=== PATIENT | female | born 1965 | race Caucasian/White ===

== ENCOUNTER 2020-08-26 17:06 | Inpatient (IN) | payer MEDICARE, SELFPAY ==
[2020-08-26 18:00] VITALS: BP 115/62; PULSE 63; RESP 18; TEMP 36.3; O2SAT 99
[2020-08-26 19:35] LABS: Valproate 50.7 mcg/mL (50.0-100.0)
[2020-08-26] MEDS: clonazePAM 0.5 MG TABLET 0.25 MG PO (20:42)
[2020-08-26] MEDS: OLANZapine 5 MG TABLET PO (20:44)
[2020-08-26] MEDS: Divalproex Sodium 500 MG TABLET.DR PO (20:44)
[2020-08-26] MEDS: Acetaminophen 325 MG TABLET 975 MG PO (20:44)
[2020-08-26] MEDS: busPIRone HCl 5 MG TABLET 15 MG PO (20:46)
[2020-08-26] MEDS: Topiramate 100 MG TABLET PO (20:46)
[2020-08-26] MEDS: risperiDONE 3 MG TABLET PO (20:46)
[2020-08-26] MEDS: OXcarbazepine 300 MG TABLET PO (20:46)
[2020-08-26] MEDS: Benztropine Mesylate 1 MG TABLET PO (20:46)
[2020-08-26] MEDS: Phenytoin Sodium Extended 100 MG CAPSULE 200 MG PO (20:46)
[2020-08-26] MEDS: nitrofurantoin macrocrystaL 50 MG CAPSULE PO (20:46)
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
[2020-08-27] MEDS: Benztropine Mesylate 1 MG TABLET PO ×2 (08:23→21:22)
[2020-08-27] MEDS: Topiramate 100 MG TABLET PO ×3 (08:23→21:16)
[2020-08-27] MEDS: Loratadine 10 MG TABLET PO (08:23)
[2020-08-27] MEDS: OLANZapine 5 MG TABLET PO ×2 (08:23→21:16)
[2020-08-27] MEDS: nitrofurantoin macrocrystaL 50 MG CAPSULE PO ×4 (08:23→21:16)
[2020-08-27] MEDS: Phenytoin Sodium Extended 100 MG CAPSULE 200 MG PO ×2 (08:23→21:16)
[2020-08-27] MEDS: busPIRone HCl 5 MG TABLET 15 MG PO ×2 (08:23→21:15)
[2020-08-27] MEDS: Divalproex Sodium 500 MG TABLET.DR PO ×3 (08:24→21:48)
[2020-08-27] MEDS: OXcarbazepine 150 MG TABLET PO (08:24)
[2020-08-27] MEDS: risperiDONE 3 MG TABLET PO ×2 (08:24→21:21)
[2020-08-27] MEDS: Acetaminophen 325 MG TABLET 975 MG PO ×2 (08:24→21:21)
[2020-08-27 08:35] LABS: MANUAL DIFF FLAG NO
[2020-08-27 08:41] LABS: Basophils Absolute Auto 0.1 X10*3/uL (0.0-0.2); Basophils Percent Auto 2.3 % (0-2); Eosinophils Absolute Auto 0.2 X10*3/uL (0.0-0.4); Eosinophils Percent Auto 3.8 % (0-4); Hematocrit 42.3 % (37-47); Hemoglobin 13.5 g/dl (12.0-16.0); Imm Gran Abs Auto 0.01 X10*3/uL (0.00-0.03); Imm Gran Pct Auto 0.2 % (0.0-0.4); Lymphocytes Absolute Auto 1.9 X10*3/uL (1.2-4.9); Lymphocytes Percent Auto 40.7 % (20-40); Mean Corpuscular HGB Conc 31.9 g/dl (31.0-35.0); Mean Corpuscular Hemoglobin 31.1 pg (27.0-33.0); Mean Corpuscular Volume 97.5 fL (80-98); Mean Platelet Volume 9.4 fL (9.4-12.3); Monocytes Absolute Auto 0.5 X10*3/uL (0.1-1.2); Monocytes Percent Auto 9.9 % (2-11); Neutrophils Percent Auto 43.1 % (45-73); Platelet Count 400 X10*3/uL (160-400); Red Blood Count 4.34 X10*6/uL (4.20-5.50); Red Cell Distribution Width 14.3 % (11.0-16.0); White Blood Count 4.7 X10*3/uL (4.8-10.8)
[2020-08-27 08:52] LABS: Estimated Average Glucose 97 mg/dL
[2020-08-27] MEDS: clonazePAM 0.5 MG TABLET 0.25 MG PO ×2 (09:07→21:19)
[2020-08-27 10:00] VITALS: BP 128/60; PULSE 98; RESP 18; TEMP 36.8; O2SAT 98
[2020-08-27 10:09] VITALS: BP 128/60; PULSE 70; RESP 18; TEMP 36.8; O2SAT 98
--- NOTE | 2020-08-27 10:25 | PM.IMHP ---
History of Present Illness Date of Service: 08/27/20 Chief Complaint: Medical consultation, transferred from outside hospital This 54-year-old female with past medical history of asthma, MS, PTSD, GERD, and history of bipolar disorder who is admitted to [facility] for mood decompensation and psychosis. We are asked to see her in consultation as she was transferred from outside facility. Patient is reporting nasal congestion, shortness of breath, wheezing, and reports that she has been having asthma exacerbation for the past 1 month on and off. She is asking about her inhaler, she is also complaining of numbness and tingling and weakness all over her body with no specific acute neurological deficit. She is complaining of chronic lower back pain and would like a lidocaine patch for it. Back pain is located in the lower back radiating to the abdomen to the front Patient denies any headache, change in vision, she has diarrhea occasionally, she has nausea and occasional vomiting. Reports urinary frequency with no dysuria urgency. Her labs from this a.m. show WBC count of 4.7, with no other abnormality. Past medical history as below and confirmed with patient Review of Systems Review of Systems: Yes all other systems are reviewed and are negative [facility] Medical History (Updated 08/27/20 @ 10:41 by Raza Slaughter MD) Asthma Bipolar disorder GERD (gastroesophageal reflux disease) Multiple sclerosis PTSD (post-traumatic stress disorder) Pertinent family history: Significant for asthma, ADD, MS Surgical History History of bilateral breast reduction surgery Social History Household Members: Other Household Members Other:: pt. resides in custodial Housing: House Do you presently have visiting nurse or other home services: Yes Smoking Status: Never smoker Second Hand Smoke Exposure: No Use of substances other than those prescribed or required for medical reasons: No Currently Displaying Signs/Symptoms of Drug Intoxication Withdrawal: No Have you been hit, kicked, punched, or otherwise hurt by someone within the past year? If so, by whom?: No Do you feel safe in your current relationship?: No Current Relationship Is there a partner from a previous relationship who is making you feel unsafe now?: No Are you made to feel afraid or neglected: No Spiritual Healthcare Practices: none [facility] Practices: none Cultural Healthcare Practices: none Advance Directives: No Advance Directives Information Provided: Yes Do you have thoughts of harming others: Vague Do you have a plan to hurt others: No Plan Recently lost weight without trying: No Meds Allergies Allergy/AdvReac Type Severity Reaction Status Date / Time No Known Allergies Allergy Verified 08/26/20 17:05 Active Medications: Current Medications Generic Name Dose Route Start Last Admin Trade Name Freq PRN Reason Stop Dose Admin Acetaminophen 975 mg 08/26/20 21:00 08/27/20 08:24 Acetaminophen 325 Mg Tablet PO 975 mg BID PAM Administration Al Hydroxide/Mg Hydroxide 30 ml 08/26/20 17:42 Magnesium Hydrox/Alum Hydrox 30 Ml Oral.Susp PO Q6H PRN Heartburn/Nausea Albuterol Sulfate 2 puff 08/27/20 10:15 Albuterol Sulfate 90 Mcg 8 Gm Inhaler INHALE Q4H PRN Shortness of Breath/Wheezing Benztropine Mesylate 1 mg 08/26/20 21:00 08/27/20 08:23 Benztropine Mesylate 1 Mg Tablet PO 1 mg BID PAM Administration Buspirone HCl 15 mg 08/26/20 21:00 08/27/20 08:23 Buspirone Hcl 5 Mg Tablet PO 15 mg BID PAM Administration Clonazepam 0.25 mg 08/26/20 21:00 08/27/20 09:07 Clonazepam 0.5 Mg Tablet PO 0.25 mg BID PAM Administration Divalproex Sodium 500 mg 08/26/20 21:00 08/27/20 08:24 Divalproex Sodium 500 Mg Tablet.Dr PO 500 mg TID PAM Administration Hydroxyzine HCl 25 mg 08/26/20 17:42 Hydroxyzine Hcl 25 Mg Tablet PO BEDTIME PRN Anxiety Ibuprofen 400 mg 08/26/20 18:00 Ibuprofen 400 Mg Tablet PO Q8H PRN pain Lidocaine 1 patch 08/28/20 09:00 Lidocaine 4 % Patch Adh..Patch TRANSDERMA DAILY [facility] Protocol Loratadine 10 mg 08/27/20 09:00 08/27/20 08:23 Loratadine 10 Mg Tablet PO 10 mg DAILY PAM Administration Lorazepam 1 mg 08/26/20 18:03 Lorazepam 1 Mg Tablet PO Q4H PRN anxiety, agitation Magnesium Hydroxide 30 ml 08/26/20 17:42 Milk Of Magnesia 30 Ml Oral.Susp PO DAILY PRN Constipation Nitrofurantoin Macrocrystals 50 mg 08/26/20 21:00 08/27/20 08:23 Nitrofurantoin Macrocrystal 50 Mg Capsule PO 50 mg QID PAM Administration Olanzapine 5 mg 08/26/20 21:00 08/27/20 08:23 Olanzapine 5 Mg Tablet PO 5 mg BID PAM Administration Olanzapine 5 mg 08/26/20 18:02 Olanzapine 5 Mg Tablet PO Q4H PRN psychotic agitation Oxcarbazepine 150 mg 08/27/20 09:00 08/27/20 08:24 Oxcarbazepine 150 Mg Tablet PO 150 mg DAILY [facility] Administration Oxcarbazepine 300 mg 08/26/20 21:00 08/26/20 20:46 Oxcarbazepine 300 Mg Tablet PO 300 mg BEDTIME PAM Administration Phenytoin Sodium 200 mg 08/26/20 21:00 08/27/20 08:23 Phenytoin Sodium Extended 100 Mg Capsule PO 200 mg BID PAM Administration Prednisone 40 mg 08/28/20 09:00 Prednisone 20 Mg Tablet PO DAILY PAM Risperidone 3 mg 08/26/20 21:00 08/27/20 08:24 Risperidone 3 Mg Tablet PO 3 mg BID PAM Administration Topiramate 100 mg 08/26/20 21:00 08/27/20 08:23 Topiramate 100 Mg Tablet PO 100 mg TID PAM Administration Trazodone HCl 50 mg 08/26/20 17:42 Trazodone Hcl 50 Mg Tablet PO BEDTIME PRN Insomnia Physical Exam Vital Signs and Narrative: Vital Signs: Last Vital Signs Temp 98.2 F 08/27/20 10:09 Pulse 70 08/27/20 10:09 Resp 18 08/27/20 10:09 BP 128/60 08/27/20 10:09 Pulse Ox 98 08/27/20 10:09 Const: General: cooperative and no acute distress Orientation/consciousness: patient oriented x3 HENMT: Other: Rhinorrhea Eyes: General: appearance normal, both eyes and all related structures Resp: Other: Mild respiratory wheezing Effort & Inspection: normal respiratory effort and able to speak in complete sentences Cardio: Rate: regular rate Rhythm: regular rhythm GI: Palpation (GI): Soft to palpation Auscultation: normal bowel sounds Skin: General skin exam: no rashes or lesions noted Neuro: General: patient oriented x3 Cognition (Neuro): normal cognition Extrem: General: Yes normal to inspection and Yes no pedal edema Results Labs CBC and Chem 7: 08/27/20 08:12 Labs: Laboratory Results - last 24 hr 08/26/20 08/27/20 08/27/20 18:55 08:12 08:12 MCV 97.5 MCH 31.1 MCHC 31.9 RDW 14.3 Plt Count 400 MPV 9.4 Immature Gran % (Auto) 0.2 Neut % (Auto) 43.1 L Lymph % (Auto) 40.7 H Throckmorton % (Auto) 9.9 Eos % (Auto) 3.8 Baso % (Auto) 2.3 H Lymph # (Auto) 1.9 Th[place]morton # (Auto) 0.5 Eos # (Auto) 0.2 Baso # (Auto) 0.1 Abs Immat Gran (auto) 0.01 Absolute Neuts (auto) 2.0 Absolute Nucleated RBC 0.000 Nucleated RBC % (auto) 0.0 Estimat Average Glucose 97 Hemoglobin A1c % 5.0 Valproic Acid 50.7 Assessment and Plan (1) Asthma: Status: Acute (2) Back pain: Status: Acute (3) Bipolar disorder: Status: Inactive This is a 54-year-old female with history of bipolar, PTSD, asthma, MS who presents to [facility] for decompensated mood and psychosis. We are s asked to see patient medical consultation # asthma - she has mild expiratory wheezing, not in respiratory distress, no dyspnea, no hypoxia - will start he on prednisone 40 p.o., p.r.n. albuterol inhaler at bedside, prn duoneb with wheezing and SOB - Pseudophed for nasal congestion # Back pain - Chronic - will prescribe lidocaine patch # Mood disorder - Management per psychiatrist Thank you for this consult will sign off , if you need us to reevaluate pt , please contact us
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
[2020-08-27 18:00] VITALS: BP 125/76; PULSE 80; RESP 16; TEMP 36; O2SAT 99
[2020-08-27] MEDS: OXcarbazepine 300 MG TABLET PO (21:21)
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
[2020-08-28] MEDS: Acetaminophen 325 MG TABLET 975 MG PO ×2 (08:35→20:13)
[2020-08-28] MEDS: busPIRone HCl 5 MG TABLET 15 MG PO ×2 (08:36→20:12)
[2020-08-28] MEDS: clonazePAM 0.5 MG TABLET 0.25 MG PO ×2 (08:36→20:12)
[2020-08-28] MEDS: OLANZapine 5 MG TABLET PO ×2 (08:37→20:14)
[2020-08-28] MEDS: predniSONE 20 MG TABLET 40 MG PO (08:37)
[2020-08-28] MEDS: nitrofurantoin macrocrystaL 50 MG CAPSULE PO ×4 (08:37→20:13)
[2020-08-28] MEDS: OXcarbazepine 150 MG TABLET PO (08:37)
[2020-08-28] MEDS: Phenytoin Sodium Extended 100 MG CAPSULE 200 MG PO ×2 (08:37→20:14)
[2020-08-28] MEDS: Topiramate 100 MG TABLET PO ×3 (08:37→20:14)
[2020-08-28] MEDS: Divalproex Sodium 500 MG TABLET.DR PO ×3 (08:37→20:12)
[2020-08-28] MEDS: Loratadine 10 MG TABLET PO (08:38)
[2020-08-28] MEDS: Benztropine Mesylate 1 MG TABLET PO ×2 (08:38→20:14)
[2020-08-28] MEDS: risperiDONE 3 MG TABLET PO ×2 (08:38→20:14)
[2020-08-28] MEDS: Lidocaine 4 % Patch ADH..PATCH 1 PATCH TRANSDERMA (08:38)
[2020-08-28 16:53] VITALS: BP 114/58; PULSE 72; RESP 18; TEMP 36; O2SAT 99
[2020-08-28] MEDS: OXcarbazepine 300 MG TABLET PO (20:13)
[2020-08-29 05:05] VITALS: BP 118/63; PULSE 70; RESP 16; TEMP 36.6; O2SAT 100
[2020-08-29 08:39] LABS: Folate 6.5 ng/mL (> or = 4.0); Vitamin B12 449 pg/mL (200-900)
--- NOTE | 2020-08-29 09:00 | ECG_ITS ---
Test Reason : QTC PROLONGATION Blood Pressure : / mmHG Vent. Rate : 078 BPM Atrial Rate : 078 BPM P-R Int : 168 ms QRS Dur : 082 ms QT Int : 398 ms P-R-T Axes : 057 035 -27 degrees QTc Int : 453 ms Normal sinus rhythm Low voltage QRS T wave abnormality, consider anterior ischemia Abnormal ECG No previous ECGs available Referred By: Dora Stapleton Electronically Signed By:Naren Contreras
[2020-08-29] MEDS: busPIRone HCl 5 MG TABLET 15 MG PO ×2 (09:02→20:39)
[2020-08-29] MEDS: Benztropine Mesylate 1 MG TABLET PO ×2 (09:02→20:41)
[2020-08-29] MEDS: Acetaminophen 325 MG TABLET 975 MG PO ×2 (09:03→20:41)
[2020-08-29] MEDS: predniSONE 20 MG TABLET 40 MG PO (09:04)
[2020-08-29] MEDS: OXcarbazepine 150 MG TABLET PO (09:05)
[2020-08-29] MEDS: Divalproex Sodium 500 MG TABLET.DR PO ×3 (09:05→20:41)
[2020-08-29] MEDS: clonazePAM 0.5 MG TABLET 0.25 MG PO ×2 (09:05→20:40)
[2020-08-29] MEDS: nitrofurantoin macrocrystaL 50 MG CAPSULE PO ×4 (09:06→20:40)
[2020-08-29] MEDS: Loratadine 10 MG TABLET PO (09:06)
[2020-08-29] MEDS: Phenytoin Sodium Extended 100 MG CAPSULE 200 MG PO ×2 (09:07→20:39)
[2020-08-29] MEDS: Topiramate 100 MG TABLET PO ×3 (09:07→20:41)
[2020-08-29] MEDS: risperiDONE 3 MG TABLET PO ×2 (09:07→20:41)
[2020-08-29] MEDS: OLANZapine 5 MG TABLET PO ×2 (09:08→20:39)
[2020-08-29] MEDS: Lidocaine 4 % Patch ADH..PATCH 1 PATCH TRANSDERMA (09:09)
[2020-08-29 11:55] LABS: Alanine Aminotransferase 13 U/L (0-31); Albumin Level 3.8 g/dL (3.5-5.0); Alkaline Phosphatase 87 U/L (39-117); Anion Gap 14 (12-20); Aspartate Amino Transferase 15 U/L (5-31); Bilirubin Total 0.3 mg/dL (0.0-1.0); Blood Urea Nitrogen 20 mg/dL (9-16); Calcium 8.6 mg/dL (8.4-10.2); Carbon Dioxide 23 mmol/L (22-29); Chloride 106 mmol/L (96-108); Estimated Glomerular Filt Rate > 60; Glucose Random 99 mg/dL (60-115); Potassium 4.3 mmol/L (3.3-5.1); Sodium 139 mmol/L (135-145); Total Protein 7.3 g/dL (6.5-8.0)
[2020-08-29 12:15] LABS: Thyroid Stimulating Hormone 0.95 uIU/mL (0.32-4.0); Vitamin D 25-OH Total 24.6 ng/mL (>30)
[2020-08-29] MEDS: Ibuprofen 400 MG TABLET PO (13:16)
[2020-08-29 16:23] VITALS: BP 123/58; PULSE 69; RESP 18; TEMP 36.2
--- NOTE | 2020-08-29 17:34 | HO.PSYCHPN ---
Subjective Subjective Date of Service: 08/29/20 Reason For Visit: unspecified schizophrenia Subjective Notes: Conditional Voluntary Interim History: Pt reports she is OK . Denies current psychiatric sx. Believes she is here for sciatica. No behaviors of concern observed. Medication Compliance: Yes Side effects from medications: No Attending Groups: No Review of Systems Musculoskeletal: Reports back pain and Reports other (reports sciatica sx) Mental Status Exam Mental Status Exam Patient Appearance: Appropriate Patient Orientation: Person and Place Level of Consciousness: Alert Patient Behavior: Cooperative, Anxious, Fearful, Distractible and Good Eye Contact Mood Description: Flat Affect Description: Flat Patient Cognition Impaired: Yes Ability to Follow Directions: Good Speech Pattern: Appropriate, Monotone, Spontaneous Speech, Soft-Spoken, Delayed, Poor Articulation and Long Pauses Memory Description: Intact Hallucinations: None Delusions: Not Present Thought Process: Illogical and Distracted Thought Content: positive for Intact and positive for Circumstantial Depressive Symptoms: Increased Irritability (reported) Judgement: Fair Diagnostics Vital Signs (24Hr): Vital Signs - 24 hr 08/29/20 05:05 08/29/20 16:23 Temperature 97.8 F 97.1 F Pulse Rate 70 69 Respiratory Rate 16 18 Blood Pressure 118/63 123/58 L Pulse Oximetry 100 Labs Results: 08/27/20 08:12 08/29/20 11:12 Labs: Laboratory Results - last 48 hr 08/27/20 08/29/20 08:12 11:12 Sodium 139 Potassium 4.3 Chloride 106 Carbon Dioxide 23 Anion Gap 14 BUN 20 H Creatinine 0.78 Estim Creat Clear Calc TNP Estimated GFR > 60 Random Glucose 99 Calcium 8.6 Total Bilirubin 0.3 AST 15 ALT 13 Alkaline Phosphatase 87 Total Protein 7.3 Albumin 3.8 Vitamin B12 449 25-OH Vitamin D Total 24.6 Folate 6.5 TSH 0.95 Medications Medications Current Medications Generic Name Dose Route Start Last Admin Trade Name Freq PRN Reason Stop Dose Admin Acetaminophen 975 mg 08/26/20 21:00 08/29/20 09:03 Acetaminophen 325 Mg Tablet PO 975 mg BID PAM Administration Al Hydroxide/Mg Hydroxide 30 ml 08/26/20 17:42 Magnesium Hydrox/Alum Hydrox 30 Ml Oral.Susp PO Q6H PRN Heartburn/Nausea Albuterol Sulfate 2 puff 08/27/20 10:15 Albuterol Sulfate 90 Mcg 8 Gm Inhaler INHALE Q4H PRN Shortness of Breath/Wheezing Albuterol/Ipratropium 3 ml 08/27/20 10:46 Albuterol/Iprat 2.5/0.5mg 3 Ml Ampul.Neb INHALE RQ4H PRN Shortness of Breath/Wheezing Benztropine Mesylate 1 mg 08/26/20 21:00 08/29/20 09:02 Benztropine Mesylate 1 Mg Tablet PO 1 mg BID PAM Administration Buspirone HCl 15 mg 08/26/20 21:00 08/29/20 09:02 Buspirone Hcl 5 Mg Tablet PO 15 mg BID PAM Administration Clonazepam 0.25 mg 08/26/20 21:00 08/29/20 09:05 Clonazepam 0.5 Mg Tablet PO 0.25 mg BID PAM Administration Divalproex Sodium 500 mg 08/26/20 21:00 08/29/20 15:01 Divalproex Sodium 500 Mg Tablet.Dr PO 500 mg TID PAM Administration Hydroxyzine HCl 25 mg 08/26/20 17:42 Hydroxyzine Hcl 25 Mg Tablet PO BEDTIME PRN Anxiety Ibuprofen 400 mg 08/26/20 18:00 08/29/20 13:16 Ibuprofen 400 Mg Tablet PO 400 mg Q8H PRN Administration pain Lidocaine 1 patch 08/28/20 09:00 08/29/20 09:09 Lidocaine 4 % Patch Adh..Patch TRANSDERMA 1 patch DAILY PAM Administration Protocol Loratadine 10 mg 08/27/20 09:00 08/29/20 09:06 Loratadine 10 Mg Tablet PO 10 mg DAILY PAM Administration Lorazepam 1 mg 08/26/20 18:03 Lorazepam 1 Mg Tablet PO Q4H PRN anxiety, agitation Magnesium Hydroxide 30 ml 08/26/20 17:42 Milk Of Magnesia 30 Ml Oral.Susp PO DAILY PRN Constipation Nitrofurantoin Macrocrystals 50 mg 08/26/20 21:00 08/29/20 16:45 Nitrofurantoin Macrocrystal 50 Mg Capsule PO 50 mg QID PAM Administration Olanzapine 5 mg 08/26/20 21:00 08/29/20 09:08 Olanzapine 5 Mg Tablet PO 5 mg BID PAM Administration Olanzapine 5 mg 08/26/20 18:02 Olanzapine 5 Mg Tablet PO Q4H PRN psychotic agitation Oxcarbazepine 150 mg 08/27/20 09:00 08/29/20 09:05 Oxcarbazepine 150 Mg Tablet PO 150 mg DAILY PAM Administration Oxcarbazepine 300 mg 08/26/20 21:00 08/28/20 20:13 Oxcarbazepine 300 Mg Tablet PO 300 mg BEDTIME PAM Administration Phenytoin Sodium 200 mg 08/26/20 21:00 08/29/20 09:07 Phenytoin Sodium Extended 100 Mg Capsule PO 200 mg BID PAM Administration Prednisone 40 mg 08/28/20 09:00 08/29/20 09:04 Prednisone 20 Mg Tablet PO 40 mg DAILY PAM Administration Pseudoephedrine HCl 30 mg 08/27/20 10:30 Pseudoephedrine Hcl 30 Mg Tablet PO Q4H PRN Nasal Congestion Risperidone 3 mg 08/26/20 21:00 08/29/20 09:07 Risperidone 3 Mg Tablet PO 3 mg BID PAM Administration Topiramate 100 mg 08/26/20 21:00 08/29/20 15:01 Topiramate 100 Mg Tablet PO 100 mg TID PAM Administration Trazodone HCl 50 mg 08/26/20 17:42 Trazodone Hcl 50 Mg Tablet PO BEDTIME PRN Insomnia Vitamin D 25 mcg 08/30/20 09:00 Cholecalciferol (Vitamin D3) 25 Mcg Tablet PO DAILY PAM Allergies Allergies Allergy/AdvReac Type Severity Reaction Status Date / Time No Known Allergies Allergy Verified 08/26/20 17:05 Assessment & Plan Assessment & Plan (1) Schizophrenia: Status: Acute Code(s): F20.9 - Schizophrenia, unspecified Assessment and Plan: Continue to observe for sx, behaviors (2) Intellectual disability: Status: Acute Code(s): F79 - Unspecified intellectual disabilities Greater than 50% of the session was spent on counseling and/or coordination of care Reason for contiued inpatient stay Substantial Risk for: harm to self, harm to others, inability to function and rapid decompensation
[2020-08-29] MEDS: OXcarbazepine 300 MG TABLET PO (20:40)
--- NOTE | 2020-08-30 | EEG_ITS ---
This is a 16-channel EEG with an EKG lead. The patient is reported awake and drowsy during the tracing. Background EEG rhythm is about 10 hertz, 5 to 30 microvolt posteriorly, lower amplitude fast anteriorly. Intermittently some mild slowing is noted that is slightly more pronounced in right frontal area. No definite sharp waves or spikes were noted. Photic stimulation does not produce any significant abnormality. Hyperventilation is not performed. Cardiac lead does not reveal any significant abnormality. IMPRESSION: No significant abnormality noted on this EEG. MD LC Tenorio/SENG / [id number]
[2020-08-30 06:10] VITALS: BP 135/64; PULSE 71; RESP 16; TEMP 36.4; O2SAT 100
[2020-08-30] MEDS: Phenytoin Sodium Extended 100 MG CAPSULE 200 MG PO ×2 (07:43→20:38)
[2020-08-30] MEDS: clonazePAM 0.5 MG TABLET 0.25 MG PO ×2 (07:43→20:37)
[2020-08-30] MEDS: busPIRone HCl 5 MG TABLET 15 MG PO ×2 (07:44→20:36)
[2020-08-30] MEDS: Divalproex Sodium 500 MG TABLET.DR PO ×3 (07:45→20:38)
[2020-08-30] MEDS: Topiramate 100 MG TABLET PO ×3 (07:45→20:36)
[2020-08-30] MEDS: predniSONE 20 MG TABLET 40 MG PO (07:45)
[2020-08-30] MEDS: OLANZapine 5 MG TABLET PO ×2 (07:46→20:37)
[2020-08-30] MEDS: Acetaminophen 325 MG TABLET 975 MG PO ×2 (07:46→17:25)
[2020-08-30] MEDS: Cholecalciferol (Vitamin D3) 25 MCG TABLET PO (07:46)
[2020-08-30] MEDS: risperiDONE 3 MG TABLET PO ×2 (07:46→20:37)
[2020-08-30] MEDS: Benztropine Mesylate 1 MG TABLET PO ×2 (07:47→20:38)
[2020-08-30] MEDS: Loratadine 10 MG TABLET PO (07:47)
[2020-08-30] MEDS: Lidocaine 4 % Patch ADH..PATCH 1 PATCH TRANSDERMA (07:48)
[2020-08-30] MEDS: OXcarbazepine 150 MG TABLET PO (07:48)
[2020-08-30] MEDS: nitrofurantoin macrocrystaL 50 MG CAPSULE PO ×4 (07:54→20:36)
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
--- NOTE | 2020-08-30 16:29 | PM.NEUROCN ---
History of Present Illness Data of Consult Service Date: 08/30/20 Primary Care Provider: Shahzad Soliz DO, MD HPI Reason for consult: History of seizures since age 2 This is a 54-year-old woman who was transferred here from [facility] to the psych unit. She has a history of for mild intellectual disability since schizophrenia asthma back pain and epilepsy since age 2. She has been on Depakote and came in with a therapeutic level of just above 50. She says that she has not had a seizure in over a year. No eyewitness account of the seizures is available. She's not very reliable historian. Review of Systems Eyes: Eyes: Reports no additional eye complaints ENT: Reports system reviewed and no additional complaints, except as documented and Reports Normal hearing present Cardiovascular: Cardiovascular: Reports no additional cardiovascular complaints Respiratory: Respiratory: Reports no additional respiratory complaints Gastrointestinal: Gastrointestinal: Reports no additional gastrointestinal complaints Musculoskeletal: Musculoskeletal: Reports no additional musculoskeletal complaints Integumentary/Breasts: Skin/Breast: Reports system reviewed and no additional complaints, except as docu Neurologic: Reports as per HPI and Reports Normal hearing present Psychiatric: Psychiatric: Reports as per HPI Endocrine: Endocrine: Reports no additional endocrine complaints Hematologic/Lymphatic: Hematologic/Lymphatic: Reports no additional hematologic/lymphatic complaints Allergic/Immunologic: Allergic/Immunologic: Reports no additional allergic/immunologic complaints [facility] Past Medical History Medical History (Updated 08/30/20 @ 16:32 by Brigitte Nunez MD) Asthma Bipolar disorder GERD (gastroesophageal reflux disease) Intellectual disability Multiple sclerosis PTSD (post-traumatic stress disorder) Schizophrenia Seizure disorder Surgical History Surgical History History of bilateral breast reduction surgery Social History Social History Household Members: Other Household Members Other:: pt. resides in correction Housing: House Do you presently have visiting nurse or other home services: Yes Smoking Status: Never smoker Second Hand Smoke Exposure: No Use of substances other than those prescribed or required for medical reasons: No Currently Displaying Signs/Symptoms of Drug Intoxication Withdrawal: No Have you been hit, kicked, punched, or otherwise hurt by someone within the past year? If so, by whom?: No Do you feel safe in your current relationship?: No Current Relationship Is there a partner from a previous relationship who is making you feel unsafe now?: No Are you made to feel afraid or neglected: No Spiritual Healthcare Practices: none Latter-Day Healthcare Practices: none Cultural Healthcare Practices: none Advance Directives: No Advance Directives Information Provided: Yes Do you have thoughts of harming others: None Do you have a plan to hurt others: No Plan Recently lost weight without trying: No service: No Sexual orientation: Don't Know Meds Allergies Allergy/AdvReac Type Severity Reaction Status Date / Time No Known Allergies Allergy Verified 08/26/20 17:05 Active Medications: Current Medications Generic Name Dose Route Start Last Admin Trade Name Freq PRN Reason Stop Dose Admin Acetaminophen 975 mg 08/26/20 21:00 08/30/20 07:46 Acetaminophen 325 Mg Tablet PO 975 mg BID PAM Administration Al Hydroxide/Mg Hydroxide 30 ml 08/26/20 17:42 Magnesium Hydrox/Alum Hydrox 30 Ml Oral.Susp PO Q6H PRN Heartburn/Nausea Albuterol Sulfate 2 puff 08/27/20 10:15 Albuterol Sulfate 90 Mcg 8 Gm Inhaler INHALE Q4H PRN Shortness of Breath/Wheezing Albuterol/Ipratropium 3 ml 08/27/20 10:46 Albuterol/Iprat 2.5/0.5mg 3 Ml Ampul.Neb INHALE RQ4H PRN Shortness of Breath/Wheezing Benztropine Mesylate 1 mg 08/26/20 21:00 08/30/20 07:47 Benztropine Mesylate 1 Mg Tablet PO 1 mg BID PAM Administration Buspirone HCl 15 mg 08/26/20 21:00 08/30/20 07:44 Buspirone Hcl 5 Mg Tablet PO 15 mg BID PAM Administration Clonazepam 0.25 mg 08/26/20 21:00 08/30/20 07:43 Clonazepam 0.5 Mg Tablet PO 0.25 mg BID PAM Administration Divalproex Sodium 500 mg 08/26/20 21:00 08/30/20 14:23 Divalproex Sodium 500 Mg Tablet.Dr PO 500 mg TID PAM Administration Hydroxyzine HCl 25 mg 08/26/20 17:42 Hydroxyzine Hcl 25 Mg Tablet PO BEDTIME PRN Anxiety Ibuprofen 400 mg 08/26/20 18:00 08/29/20 13:16 Ibuprofen 400 Mg Tablet PO 400 mg Q8H PRN Administration pain Lidocaine 1 patch 08/28/20 09:00 08/30/20 07:48 Lidocaine 4 % Patch Adh..Patch TRANSDERMA 1 patch DAILY PAM Administration Protocol Loratadine 10 mg 08/27/20 09:00 08/30/20 07:47 Loratadine 10 Mg Tablet PO 10 mg DAILY PAM Administration Lorazepam 1 mg 08/26/20 18:03 Lorazepam 1 Mg Tablet PO Q4H PRN anxiety, agitation Magnesium Hydroxide 30 ml 08/26/20 17:42 Milk Of Magnesia 30 Ml Oral.Susp PO DAILY PRN Constipation Nitrofurantoin Macrocrystals 50 mg 08/26/20 21:00 08/30/20 14:23 Nitrofurantoin Macrocrystal 50 Mg Capsule PO 50 mg QID PAM Administration Olanzapine 5 mg 08/26/20 21:00 08/30/20 07:46 Olanzapine 5 Mg Tablet PO 5 mg BID PAM Administration Olanzapine 5 mg 08/26/20 18:02 Olanzapine 5 Mg Tablet PO Q4H PRN psychotic agitation Oxcarbazepine 150 mg 08/27/20 09:00 08/30/20 07:48 Oxcarbazepine 150 Mg Tablet PO 150 mg DAILY PAM Administration Oxcarbazepine 300 mg 08/26/20 21:00 08/29/20 20:40 Oxcarbazepine 300 Mg Tablet PO 300 mg BEDTIME PAM Administration Phenytoin Sodium 200 mg 08/26/20 21:00 08/30/20 07:43 Phenytoin Sodium Extended 100 Mg Capsule PO 200 mg BID PAM Administration Prednisone 40 mg 08/28/20 09:00 08/30/20 07:45 Prednisone 20 Mg Tablet PO 40 mg DAILY PAM Administration Pseudoephedrine HCl 30 mg 08/27/20 10:30 Pseudoephedrine Hcl 30 Mg Tablet PO Q4H PRN Nasal Congestion Risperidone 3 mg 08/26/20 21:00 08/30/20 07:46 Risperidone 3 Mg Tablet PO 3 mg BID PAM Administration Topiramate 100 mg 08/26/20 21:00 08/30/20 14:23 Topiramate 100 Mg Tablet PO 100 mg TID PAM Administration Trazodone HCl 50 mg 08/26/20 17:42 Trazodone Hcl 50 Mg Tablet PO BEDTIME PRN Insomnia Vitamin D 25 mcg 08/30/20 09:00 08/30/20 07:46 Cholecalciferol (Vitamin D3) 25 Mcg Tablet PO 25 mcg DAILY PAM Administration Physical Exam Vital Signs: Vital Signs: Last Vital Signs Temp 97.5 F 08/30/20 06:10 Pulse 71 08/30/20 06:10 Resp 16 08/30/20 06:10 BP 135/64 08/30/20 06:10 Pulse Ox 100 08/30/20 06:10 Const: General: cooperative, comfortable, no acute distress, well developed, alert and awake Nutritional Appearance: well nourished Orientation/consciousness: oriented to person, oriented to place and oriented to time Limitations: no limitations HENMT: Head: Yes normal to inspection, Yes normocephalic and Yes atraumatic Ears: hearing grossly normal bilaterally General nose exam: Normal external nose present Face and sinus: Yes normal facial exam Mouth: Normal oral and palatal mucosa present Eyes: General: appearance normal, both eyes and all related structures Visual Beth: normal visual beth by confrontation Alignment and Position: alignment normal Periorbital: periorbital findings normal Eyelids: Yes eyelids normal Conjunctivae: conjunctivae normal Sclerae: sclerae normal Corneas: corneas normal Pupils: Equal, round and reactive pupils present and Pupil accommodation reflex normal EOM: EOMs intact bilaterally Direct Ophthalmoscopy: normal light reflex Neck: Neck: Yes normal visual inspection, Yes full ROM and Yes no meningeal signs Thyroid: Thyroid normal Carotids: normal carotid upstroke and bounding pulses Chest: Chest palpation & inspection: normal inspection of the chest Resp: Effort & Inspection: normal respiratory effort Auscultation: clear to auscultation bilaterally Cardio: Rate: regular rate Rhythm: regular rhythm Heart sounds: S1 normal heart sound present and S2 normal heart sound present Peripheral pulses: Peripheral pulses 2+ throughout GI: Inspection: Yes normal to inspection Percussion: Yes normal to percussion Auscultation: normal bowel sounds Rectal Exam - Female: deferred Back/Spine/Pelvis: Cervical Spine: normal cervical lordosis and cervical ROM normal Thoracic/Lumbar Spine: thoracic and lumbar spine normal to inspection Skin: General skin exam: no rashes or lesions noted Neuro: Other: She has a flat affect and is slow in her responses and is obviously intellectually disabled. She is cooperative and follows commands. General: oriented to person, oriented to place, oriented to time, gait normal, tone normal, moves all extremities, Normal light touch and pain sensation, no meningeal signs, no focal motor deficits, CN's II-XI intact bilaterally, normal sensation to monofilament and deep tendon reflexes 2+ bilaterally Cranial nerves: Yes CN's II-XII intact bilaterally, Yes Equal, round and reactive pupils present, Yes Bilaterally intact EOM present, Yes Nystagmus not present, Yes Normal facial strength present, Yes Midline tongue present, Yes Normal gag reflex present, Yes Symmetric palate elevation present, Yes Normal hearing present and Yes Ability to bilaterally rotate head present Cognition (Neuro): normal cognition Speech: Other speech findings present (Neuro) Gait exam (Neuro): Normal gait present Motor exam (neuro): 5/5 motor strength present throughout, Pronator motor function not present, no tremor noted, no asterixis, Motor fasciculations not present, Normal motor muscle tone present throughout and Motor abnormalities not present Sensory Exam: Bilaterally intact graphesthesia Deep tendon reflexes (DTR's): Right triceps reflex intensity grade: 2+, Left triceps reflex intensity grade: 2+, Rt Biceps (C5, C6): 2+, Left biceps reflex intensity grade: 2+, Right brachioradialis reflex intensity grade: 2+, Left brachioradialis reflex intensity grade: 2+, Right patellar reflex intensity grade: 2+, Left patellar reflex intensity grade: 2+, Right ankle reflex intensity grade: 2+ and Left ankle reflex intensity grade: 2+ Plantar Reflex Responses: downgoing: right, left and bilateral Coordination: [id number] test normal, [id number] test normal, tandem gait normal and Romberg test negative Pupils: Normal pupillary reactivity/response: bilateral Extrem: General: Yes normal to inspection, Yes normal exam except as noted and Yes no pedal edema Psych: Appearance: grossly normal Mental Status: mental status grossly normal Speech and movement: Normal speech and movement present and Clear speech present Affect: normal affect Attitude: cooperative Thought process: Normal thought process present Results Labs CBC & Chem 7: 08/27/20 08:12 08/29/20 11:12 Assessment and Plan (1) Seizure disorder: Problem details: She has epilepsy since childhood. The seizures appear to be controlled by her history. Valproic acid level is adequate. Status: Inactive EEG (2) Intellectual disability: Status: Acute (3) Back pain: Problem details: Chronic low back pain with some sciatica Status: Acute MRI of the lumbar spine if it has not been done previously.
[2020-08-30 19:10] VITALS: BP 145/75; PULSE 79; TEMP 36.4
[2020-08-30] MEDS: OXcarbazepine 300 MG TABLET PO (20:38)
[2020-08-31 06:10] VITALS: BP 132/60; PULSE 78; RESP 16; TEMP 36.2; O2SAT 100
[2020-08-31] MEDS: nitrofurantoin macrocrystaL 50 MG CAPSULE PO ×4 (08:31→20:41)
[2020-08-31] MEDS: Phenytoin Sodium Extended 100 MG CAPSULE 200 MG PO ×2 (08:31→20:40)
[2020-08-31] MEDS: Loratadine 10 MG TABLET PO (08:32)
[2020-08-31] MEDS: Cholecalciferol (Vitamin D3) 25 MCG TABLET PO (08:32)
[2020-08-31] MEDS: OXcarbazepine 150 MG TABLET PO (08:32)
[2020-08-31] MEDS: busPIRone HCl 5 MG TABLET 15 MG PO ×2 (08:32→20:40)
[2020-08-31] MEDS: Acetaminophen 325 MG TABLET 975 MG PO ×2 (08:32→20:41)
[2020-08-31] MEDS: Divalproex Sodium 500 MG TABLET.DR PO ×3 (08:32→20:41)
[2020-08-31] MEDS: risperiDONE 3 MG TABLET PO ×2 (08:32→20:40)
[2020-08-31] MEDS: predniSONE 20 MG TABLET 40 MG PO (08:33)
[2020-08-31] MEDS: clonazePAM 0.5 MG TABLET 0.25 MG PO ×2 (08:33→22:08)
[2020-08-31] MEDS: Topiramate 100 MG TABLET PO ×3 (08:34→20:40)
[2020-08-31] MEDS: OLANZapine 5 MG TABLET PO ×2 (08:34→20:40)
[2020-08-31] MEDS: Lidocaine 4 % Patch ADH..PATCH 1 PATCH TRANSDERMA (08:34)
[2020-08-31] MEDS: Benztropine Mesylate 1 MG TABLET PO ×2 (08:35→20:41)
[2020-08-31] MEDS: Ibuprofen 400 MG TABLET PO (11:19)
--- NOTE | 2020-08-31 12:23 | P.PNPSI_ITS ---
Subjective Subjective Date of Service: 08/31/20 Reason For Visit: unspecified schizophrenia Subjective Notes: Conditional Voluntary Interim History: Neurology consult appreciated. EEG pending. Glo reports she is worried that her belongings are being stolen at the [place]f. She asks [place] all of her [place] [facility] [place]ed that we could not bring everything-asks for her cell phone, address book, hearing aides, hats, shampoo and body wash. Message left with her home with these requests. Medication Compliance: Yes Side effects from medications: No Attending Groups: Yes Review of Systems Musculoskeletal: Reports back pain Mental Status Exam Mental Status Exam Patient Appearance: Appropriate Patient Orientation: Person and Place Level of Consciousness: Alert Patient Behavior: Appropriate, Talkative, Cooperative, Passive, Anxious, Fearfu l, Distractible, Isolative and Good Eye Contact Mood Description: Withdrawn and Constricted Affect Description: Calm, Withdrawn and Flat Patient Cognition Impaired: Yes Ability to Follow Directions: Good Speech Pattern: Spontaneous Speech, Soft-Spoken and Long Pauses Memory Description: Intact Hallucinations: None Delusions: Not Present Thought Process: Rumination Thought Content: positive for [place], positive for Circumstantial, positive for Goal Oriented and positive for Suicidal Ideation (denies) Depressive Symptoms: Increased Irritability Judgement: Fair Diagnostics Vital Signs (24Hr): Vital Signs - 24 hr 08/30/20 19:10 08/31/20 06:10 Temperature 97.5 F 97.2 F Pulse Rate 79 78 Respiratory Rate 16 Blood Pressure 145/75 H 132/60 Pulse Oximetry 100 Labs Results: 08/27/20 08:12 08/29/20 11:12 Medications Medications Current Medications Generic Name Dose Route Start Last Admin Trade Name Koq PRN Reason Stop Dose Admin Acetaminophen 975 mg 08/26/20 21:00 08/31/20 08:32 Acetaminophen 325 Mg Tablet PO 975 mg BID PAM Administration Al Hydroxide/Mg Hydroxide 30 ml 08/26/20 17:42 Magnesium Hydrox/Alum Hydrox 30 Ml Oral.Susp PO Q6H PRN Heartburn/Nausea Albuterol Sulfate 2 puff 08/27/20 10:15 Albuterol Sulfate 90 Mcg 8 Gm Inhaler INHALE Q4H PRN Shortness of Breath/Wheezing Albuterol/Ipratropium 3 ml 08/27/20 10:46 Albuterol/Iprat 2.5/0.5mg 3 Ml Ampul.Neb INHALE RQ4H PRN Shortness of Breath/Wheezing Benztropine Mesylate 1 mg 08/26/20 21:00 08/31/20 08:35 Benztropine Mesylate 1 Mg Tablet PO 1 mg BID PAM Administration Buspirone HCl 15 mg 08/26/20 21:00 08/31/20 08:32 Buspirone Hcl 5 Mg Tablet PO 15 mg BID PAM Administration Clonazepam 0.25 mg 08/26/20 21:00 08/31/20 08:33 Clonazepam 0.5 Mg Tablet PO 0.25 mg BID PAM Administration Divalproex Sodium 500 mg 08/26/20 21:00 08/31/20 08:32 Divalproex Sodium 500 Mg Tablet.Dr PO 500 mg TID [facility] Administration Hydroxyzine HCl 25 mg 08/26/20 17:42 Hydroxyzine Hcl 25 Mg Tablet PO BEDTIME PRN Anxiety Ibuprofen 400 mg 08/26/20 18:00 08/31/20 11:19 Ibuprofen 400 Mg Tablet PO 400 mg Q8H PRN Administration pain Lidocaine 1 patch 08/28/20 09:00 08/31/20 08:34 Lidocaine 4 % Patch Adh..Patch TRANSDERMA 1 patch DAILY [facility] Administration Protocol Loratadine 10 mg 08/27/20 09:00 08/31/20 08:32 Loratadine 10 Mg Tablet PO 10 mg DAILY PAM Administration Lorazepam 1 mg 08/26/20 18:03 Lorazepam 1 Mg Tablet PO Q4H PRN anxiety, agitation Magnesium Hydroxide 30 ml 08/26/20 17:42 Milk Of Magnesia 30 Ml Oral.Susp PO DAILY PRN Constipation Nitrofurantoin Macrocrystals 50 mg 08/26/20 21:00 08/31/20 08:31 Nitrofurantoin Macrocrystal 50 Mg Capsule PO 50 mg QID PAM Administration Olanzapine 5 mg 08/26/20 21:00 08/31/20 08:34 Olanzapine 5 Mg Tablet PO 5 mg BID PAM Administration Olanzapine 5 mg 08/26/20 18:02 Olanzapine 5 Mg Tablet PO Q4H PRN psychotic agitation Oxcarbazepine 150 mg 08/27/20 09:00 08/31/20 08:32 Oxcarbazepine 150 Mg Tablet PO 150 mg DAILY PAM Administration Oxcarbazepine 300 mg 08/26/20 21:00 08/30/20 20:38 Oxcarbazepine 300 Mg Tablet PO 300 mg BEDTIME PMA Administration Phenytoin Sodium 200 mg 08/26/20 21:00 08/31/20 08:31 Phenytoin Sodium Extended 100 Mg Capsule PO 200 mg BID PAM Administration Prednisone 40 mg 08/28/20 09:00 08/31/20 08:33 Prednisone 20 Mg Tablet PO 40 mg DAILY PAM Administration Pseudoephedrine HCl 30 mg 08/27/20 10:30 Pseudoephedrine Hcl 30 Mg Tablet PO Q4H PRN Nasal Congestion Risperidone 3 mg 08/26/20 21:00 08/31/20 08:32 Risperidone 3 Mg Tablet PO 3 mg BID PAM Administration Topiramate 100 mg 08/26/20 21:00 08/31/20 08:34 Topiramate 100 Mg Tablet PO 100 mg TID PAM Administration Trazodone HCl 50 mg 08/26/20 17:42 Trazodone Hcl 50 Mg Tablet PO BEDTIME PRN Insomnia Vitamin D 25 mcg 08/30/20 09:00 08/31/20 08:32 Cholecalciferol (Vitamin D3) 25 Mcg Tablet PO 25 mcg DAILY PAM Administration Allergies Allergies Allergy/AdvReac Type Severity Reaction Status Date / Time No Known Allergies Allergy Verified 08/26/20 17:05 Assessment & Plan Assessment & Plan (1) Schizophrenia: Status: Acute Code(s): F20.9 - Schizophrenia, unspecified (2) Intellectual disability: Status: Acute Code(s): F79 - Unspecified intellectual disabilities Greater than 50% of the session was spent on counseling and/or coordination of care Reason for contiued inpatient stay Substantial Risk for: harm to others and rapid decompensation
[2020-08-31 16:42] VITALS: BP 113/64; PULSE 69; RESP 18; TEMP 36.2; O2SAT 98
[2020-08-31] MEDS: OXcarbazepine 300 MG TABLET PO (20:40)
[2020-09-01 06:02] VITALS: BP 148/61; PULSE 80; RESP 16; TEMP 36.2; O2SAT 98
[2020-09-01] MEDS: risperiDONE 3 MG TABLET PO ×2 (08:30→20:42)
[2020-09-01] MEDS: busPIRone HCl 5 MG TABLET 15 MG PO ×2 (08:36→20:42)
[2020-09-01] MEDS: OXcarbazepine 150 MG TABLET PO (08:36)
[2020-09-01] MEDS: Topiramate 100 MG TABLET PO ×3 (08:36→20:43)
[2020-09-01] MEDS: Phenytoin Sodium Extended 100 MG CAPSULE 200 MG PO ×2 (08:36→20:43)
[2020-09-01] MEDS: Acetaminophen 325 MG TABLET 975 MG PO ×2 (08:37→20:44)
[2020-09-01] MEDS: Cholecalciferol (Vitamin D3) 25 MCG TABLET PO (08:37)
[2020-09-01] MEDS: OLANZapine 5 MG TABLET PO ×2 (08:37→20:43)
[2020-09-01] MEDS: Benztropine Mesylate 1 MG TABLET PO ×2 (08:37→20:42)
[2020-09-01] MEDS: Loratadine 10 MG TABLET PO (08:38)
[2020-09-01] MEDS: predniSONE 20 MG TABLET 40 MG PO (08:38)
[2020-09-01] MEDS: nitrofurantoin macrocrystaL 50 MG CAPSULE PO ×4 (08:38→20:44)
[2020-09-01] MEDS: Divalproex Sodium 500 MG TABLET.DR PO ×3 (08:38→20:42)
[2020-09-01] MEDS: clonazePAM 0.5 MG TABLET 0.25 MG PO ×2 (08:38→20:42)
[2020-09-01] MEDS: Lidocaine 4 % Patch ADH..PATCH 1 PATCH TRANSDERMA (09:41)
--- NOTE | 2020-09-01 10:42 | HO.PSYCHPN ---
Subjective Subjective Date of Service: 09/01/20 Reason For Visit: unspecified schizophrenia Interim History: The patiient has not attended groups yesterday, she remains secclussive but pleasant with thought blocking. Neurology will do an EEG and will follow her seizures. No safety concerns Medication Compliance: Yes Side effects from medications: No Review of Systems Review of Systems Yes all other systems are reviewed and are negative Mental Status Exam Mental Status Exam Patient Appearance: Disheveled Patient Orientation: Person, Place, Time and Situation Level of Consciousness: Awake Patient Behavior: Guarded Mood Description: Withdrawn Affect Description: Calm Patient Cognition Impaired: Yes Ability to Follow Directions: Good Speech Pattern: Clear Memory Description: Intact Hallucinations: None Delusions: Not Present Thought Process: Goal Oriented Thought Content: positive for Intact Judgement: Fair Diagnostics Vital Signs (24Hr): Vital Signs - 24 hr 08/31/20 16:42 09/01/20 06:02 Temperature 97.2 F 97.2 F Pulse Rate 69 80 Respiratory Rate 18 16 Blood Pressure 113/64 148/61 H Pulse Oximetry 98 98 Labs Results: 08/27/20 08:12 08/29/20 11:12 Medications Medications Current Medications Generic Name Dose Route Start Last Admin Trade Name Freq PRN Reason Stop Dose Admin Acetaminophen 975 mg 08/26/20 21:00 09/01/20 08:37 Acetaminophen 325 Mg Tablet PO 975 mg BID PAM Administration Al Hydroxide/Mg Hydroxide 30 ml 08/26/20 17:42 Magnesium Hydrox/Alum Hydrox 30 Ml Oral.Susp PO Q6H PRN Heartburn/Nausea Albuterol Sulfate 2 puff 08/27/20 10:15 Albuterol Sulfate 90 Mcg 8 Gm Inhaler INHALE Q4H PRN Shortness of Breath/Wheezing Albuterol/Ipratropium 3 ml 08/27/20 10:46 Albuterol/Iprat 2.5/0.5mg 3 Ml Ampul.Neb INHALE RQ4H PRN Shortness of Breath/Wheezing Benztropine Mesylate 1 mg 08/26/20 21:00 09/01/20 08:37 Benztropine Mesylate 1 Mg Tablet PO 1 mg BID PAM Administration Buspirone HCl 15 mg 08/26/20 21:00 09/01/20 08:36 Buspirone Hcl 5 Mg Tablet PO 15 mg BID PAM Administration Clonazepam 0.25 mg 08/26/20 21:00 09/01/20 08:38 Clonazepam 0.5 Mg Tablet PO 0.25 mg BID PAM Administration Divalproex Sodium 500 mg 08/26/20 21:00 09/01/20 08:38 Divalproex Sodium 500 Mg Tablet.Dr PO 500 mg TID PAM Administration Hydroxyzine HCl 25 mg 08/26/20 17:42 Hydroxyzine Hcl 25 Mg Tablet PO BEDTIME PRN Anxiety Ibuprofen 400 mg 08/26/20 18:00 08/31/20 11:19 Ibuprofen 400 Mg Tablet PO 400 mg Q8H PRN Administration pain Lidocaine 1 patch 08/28/20 09:00 09/01/20 09:41 Lidocaine 4 % Patch Adh..Patch TRANSDERMA 1 patch DAILY PAM Administration Protocol Loratadine 10 mg 08/27/20 09:00 09/01/20 08:38 Loratadine 10 Mg Tablet PO 10 mg DAILY PAM Administration Lorazepam 1 mg 08/26/20 18:03 Lorazepam 1 Mg Tablet PO Q4H PRN anxiety, agitation Magnesium Hydroxide 30 ml 08/26/20 17:42 Milk Of Magnesia 30 Ml Oral.Susp PO DAILY PRN Constipation Nitrofurantoin Macrocrystals 50 mg 08/26/20 21:00 09/01/20 08:38 Nitrofurantoin Macrocrystal 50 Mg Capsule PO 50 mg QID PAM Administration Olanzapine 5 mg 08/26/20 21:00 09/01/20 08:37 Olanzapine 5 Mg Tablet PO 5 mg BID PAM Administration Olanzapine 5 mg 08/26/20 18:02 Olanzapine 5 Mg Tablet PO Q4H PRN psychotic agitation Oxcarbazepine 150 mg 08/27/20 09:00 09/01/20 08:36 Oxcarbazepine 150 Mg Tablet PO 150 mg DAILY PAM Administration Oxcarbazepine 300 mg 08/26/20 21:00 08/31/20 20:40 Oxcarbazepine 300 Mg Tablet PO 300 mg BEDTIME PAM Administration Phenytoin Sodium 200 mg 08/26/20 21:00 09/01/20 08:36 Phenytoin Sodium Extended 100 Mg Capsule PO 200 mg BID PAM Administration Prednisone 40 mg 08/28/20 09:00 09/01/20 08:38 Prednisone 20 Mg Tablet PO 40 mg DAILY PAM Administration Pseudoephedrine HCl 30 mg 08/27/20 10:30 Pseudoephedrine Hcl 30 Mg Tablet PO Q4H PRN Nasal Congestion Risperidone 3 mg 08/26/20 21:00 08/31/20 20:40 Risperidone 3 Mg Tablet PO 3 mg BID PAM Administration Topiramate 100 mg 08/26/20 21:00 09/01/20 08:36 Topiramate 100 Mg Tablet PO 100 mg TID PAM Administration Trazodone HCl 50 mg 08/26/20 17:42 Trazodone Hcl 50 Mg Tablet PO BEDTIME PRN Insomnia Vitamin D 25 mcg 08/30/20 09:00 09/01/20 08:37 Cholecalciferol (Vitamin D3) 25 Mcg Tablet PO 25 mcg DAILY PAM Administration Allergies Allergies Allergy/AdvReac Type Severity Reaction Status Date / Time No Known Allergies Allergy Verified 08/26/20 17:05 Assessment & Plan Assessment & Plan (1) Schizophrenia: Status: Acute Code(s): F20.9 - Schizophrenia, unspecified Assessment and Plan: Continue same treatment (2) Intellectual disability: Status: Acute Code(s): F79 - Unspecified intellectual disabilities Greater than 50% of the session was spent on counseling and/or coordination of care Reason for contiued inpatient stay Substantial Risk for: inability to function
[2020-09-01 16:32] VITALS: BP 120/78; PULSE 80; RESP 18; TEMP 36.2; O2SAT 99
[2020-09-01] MEDS: OXcarbazepine 300 MG TABLET PO (20:44)
[2020-09-02 06:00] VITALS: BP 124/59; PULSE 79; TEMP 36.6
[2020-09-02] MEDS: Topiramate 100 MG TABLET PO ×3 (09:00→23:22)
[2020-09-02] MEDS: Loratadine 10 MG TABLET PO (09:13)
[2020-09-02] MEDS: OLANZapine 5 MG TABLET PO ×2 (09:13→23:22)
[2020-09-02] MEDS: busPIRone HCl 5 MG TABLET 15 MG PO ×2 (09:13→23:21)
[2020-09-02] MEDS: Lidocaine 4 % Patch ADH..PATCH 1 PATCH TRANSDERMA (09:13)
[2020-09-02] MEDS: Benztropine Mesylate 1 MG TABLET PO ×2 (09:13→23:21)
[2020-09-02] MEDS: nitrofurantoin macrocrystaL 50 MG CAPSULE PO ×4 (09:13→23:25)
[2020-09-02] MEDS: Cholecalciferol (Vitamin D3) 25 MCG TABLET PO (09:13)
[2020-09-02] MEDS: Acetaminophen 325 MG TABLET 975 MG PO ×2 (09:14→23:12)
[2020-09-02] MEDS: Divalproex Sodium 500 MG TABLET.DR PO ×3 (09:14→23:21)
[2020-09-02] MEDS: predniSONE 20 MG TABLET 40 MG PO (09:14)
[2020-09-02] MEDS: Phenytoin Sodium Extended 100 MG CAPSULE 200 MG PO ×2 (09:14→23:22)
[2020-09-02] MEDS: risperiDONE 3 MG TABLET PO ×2 (09:14→23:12)
[2020-09-02] MEDS: clonazePAM 0.5 MG TABLET 0.25 MG PO ×2 (09:15→23:09)
[2020-09-02] MEDS: OXcarbazepine 150 MG TABLET PO (09:15)
--- NOTE | 2020-09-02 12:44 | P.PNPSI_ITS ---
Subjective Subjective Date of Service: 09/02/20 Reason For Visit: unspecified schizophrenia Subjective Notes: Conditional Voluntary Interim History: Team reports no behaviors of concern, no aggressive sx today. Glo is concerned about her belongings being taken at her home and discussed having everything brought to the hospital. Discussed in team-as we have seen no behaviors/sx behavioral dyscontrol reported [employer]ER[employer]IST[employer] and pt is on an adequate regime, possible discharge to her home enviroment with behavioral referral for ongoing work on precipitants and plan. Review of Systems Musculoskeletal: Reports back pain (sciatica pt does have PT at [place] but [place] [facility] [place] Reports behavioral changes Psychiatric: Reports anxiety, Reports behavioral changes, Reports irritability and Reports suicidal ideation (denies) Mental Status Exam Mental Status Exam Patient Appearance: Appropriate Patient Orientation: Person, Place and Situation Level of Consciousness: Alert Patient Behavior: Talkative and Cooperative Mood Description: Withdrawn and Constricted Affect Description: Flat Patient Cognition Impaired: Yes Ability to Follow Directions: Good Speech Pattern: Clear and Spontaneous Speech Memory Description: Intact Hallucinations: None Delusions: Not Present Thought Process: Rumination Thought Content: positive for [place], positive for Circumstantial and positive for Suicidal Ideation (denies) Depressive Symptoms: Increased Irritability and Thoughts of /Suicide (denies) Judgement: Good Diagnostics Vital Signs (24Hr): Vital Signs - 24 hr 09/01/20 16:32 09/02/20 06:00 Temperature 97.1 F 97.8 F Pulse Rate 80 79 Respiratory Rate 18 Blood Pressure 120/78 124/59 L Pulse Oximetry 99 Labs Results: 08/27/20 08:12 08/29/20 11:12 Medications Medications Current Medications Generic Name Dose Route Start Last Admin Trade Name Koq PRN Reason Stop Dose Admin Acetaminophen 975 mg 08/26/20 21:00 09/02/20 09:14 Acetaminophen 325 Mg Tablet PO 975 mg BID PAM Administration Al Hydroxide/Mg Hydroxide 30 ml 08/26/20 17:42 Magnesium Hydrox/Alum Hydrox 30 Ml Oral.Susp PO Q6H PRN Heartburn/Nausea Albuterol Sulfate 2 puff 08/27/20 10:15 Albuterol Sulfate 90 Mcg 8 Gm Inhaler INHALE Q4H PRN Shortness of Breath/Wheezing Albuterol/Ipratropium 3 ml 08/27/20 10:46 Albuterol/Iprat 2.5/0.5mg 3 Ml Ampul.Neb INHALE RQ4H PRN Shortness of Breath/Wheezing Benztropine Mesylate 1 mg 08/26/20 21:00 09/02/20 09:13 Benztropine Mesylate 1 Mg Tablet PO 1 mg BID PAM Administration Buspirone HCl 15 mg 08/26/20 21:00 09/02/20 09:13 Buspirone Hcl 5 Mg Tablet PO 15 mg BID PAM Administration Clonazepam 0.25 mg 08/26/20 21:00 09/02/20 09:15 Clonazepam 0.5 Mg Tablet PO 0.25 mg BID PAM Administration Divalproex Sodium 500 mg 08/26/20 21:00 09/02/20 09:14 Divalproex Sodium 500 Mg Tablet.Dr PO 500 mg TID PAM Administration Hydroxyzine HCl 25 mg 08/26/20 17:42 Hydroxyzine Hcl 25 Mg Tablet PO BEDTIME PRN Anxiety Ibuprofen 400 mg 08/26/20 18:00 08/31/20 11:19 Ibuprofen 400 Mg Tablet PO 400 mg Q8H PRN Administration pain Lidocaine 1 patch 08/28/20 09:00 09/02/20 09:13 Lidocaine 4 % Patch Adh..Patch TRANSDERMA 1 patch DAILY PAM Administration Protocol Loratadine 10 mg 08/27/20 09:00 09/02/20 09:13 Loratadine 10 Mg Tablet PO 10 mg DAILY PAM Administration Lorazepam 1 mg 08/26/20 18:03 Lorazepam 1 Mg Tablet PO Q4H PRN anxiety, agitation Magnesium Hydroxide 30 ml 08/26/20 17:42 Milk Of Magnesia 30 Ml Oral.Susp PO DAILY PRN Constipation Nitrofurantoin Macrocrystals 50 mg 08/26/20 21:00 09/02/20 09:13 Nitrofurantoin Macrocrystal 50 Mg Capsule PO 50 mg QID PAM Administration Olanzapine 5 mg 08/26/20 21:00 09/02/20 09:13 Olanzapine 5 Mg Tablet PO 5 mg BID PAM Administration Olanzapine 5 mg 08/26/20 18:02 Olanzapine 5 Mg Tablet PO Q4H PRN psychotic agitation Oxcarbazepine 150 mg 08/27/20 09:00 09/02/20 09:15 Oxcarbazepine 150 Mg Tablet PO 150 mg DAILY PAM Administration Oxcarbazepine 300 mg 08/26/20 21:00 09/01/20 20:44 Oxcarbazepine 300 Mg Tablet PO 300 mg BEDTIME PAM Administration Phenytoin Sodium 200 mg 08/26/20 21:00 09/02/20 09:14 Phenytoin Sodium Extended 100 Mg Capsule PO 200 mg BID PAM Administration Prednisone 40 mg 08/28/20 09:00 09/02/20 09:14 Prednisone 20 Mg Tablet PO 40 mg DAILY PAM Administration Pseudoephedrine HCl 30 mg 08/27/20 10:30 Pseudoephedrine Hcl 30 Mg Tablet PO Q4H PRN Nasal Congestion Risperidone 3 mg 08/26/20 21:00 09/02/20 09:14 Risperidone 3 Mg Tablet PO 3 mg BID PAM Administration Topiramate 100 mg 08/26/20 21:00 09/01/20 20:43 Topiramate 100 Mg Tablet PO 100 mg TID PAM Administration Trazodone HCl 50 mg 08/26/20 17:42 Trazodone Hcl 50 Mg Tablet PO BEDTIME PRN Insomnia Vitamin D 25 mcg 08/30/20 09:00 09/02/20 09:13 Cholecalciferol (Vitamin D3) 25 Mcg Tablet PO 25 mcg DAILY PAM Administration Allergies Allergies Allergy/AdvReac Type Severity Reaction Status Date / Time No Known Allergies Allergy Verified 08/26/20 17:05 Assessment & Plan Assessment & Plan (1) Schizophrenia: Status: Acute Code(s): F20.9 - Schizophrenia, unspecified Assessment and Plan: -Continue current medication regime. -Dilantin level. Greater than 50% of the session was spent on counseling and/or coordination of care Reason for contiued inpatient stay Substantial Risk for: harm to others, inability to function and rapid decompensation
[2020-09-02] MEDS: OXcarbazepine 300 MG TABLET PO (23:22)
[2020-09-03 06:00] VITALS: BP 140/64; PULSE 83; RESP 16; TEMP 36.9; O2SAT 100
[2020-09-03] MEDS: busPIRone HCl 5 MG TABLET 15 MG PO ×2 (09:24→21:25)
[2020-09-03] MEDS: clonazePAM 0.5 MG TABLET 0.25 MG PO ×2 (09:24→21:28)
[2020-09-03] MEDS: Topiramate 100 MG TABLET PO ×3 (09:25→21:26)
[2020-09-03] MEDS: Acetaminophen 325 MG TABLET 975 MG PO ×2 (09:25→21:27)
[2020-09-03] MEDS: Benztropine Mesylate 1 MG TABLET PO ×2 (09:25→21:27)
[2020-09-03] MEDS: predniSONE 20 MG TABLET 40 MG PO (09:25)
[2020-09-03] MEDS: nitrofurantoin macrocrystaL 50 MG CAPSULE PO ×4 (09:25→21:26)
[2020-09-03] MEDS: Loratadine 10 MG TABLET PO (09:25)
[2020-09-03] MEDS: risperiDONE 3 MG TABLET PO ×2 (09:25→21:28)
[2020-09-03] MEDS: Cholecalciferol (Vitamin D3) 25 MCG TABLET PO (09:25)
[2020-09-03] MEDS: Phenytoin Sodium Extended 100 MG CAPSULE 200 MG PO ×2 (09:25→21:27)
[2020-09-03] MEDS: Divalproex Sodium 500 MG TABLET.DR PO ×3 (09:25→21:26)
[2020-09-03] MEDS: OXcarbazepine 150 MG TABLET PO (09:26)
[2020-09-03] MEDS: OLANZapine 5 MG TABLET PO ×2 (09:26→21:26)
[2020-09-03] MEDS: Lidocaine 4 % Patch ADH..PATCH 1 PATCH TRANSDERMA (09:30)
[2020-09-03 16:40] VITALS: BP 126/60; PULSE 79; TEMP 36.7
--- NOTE | 2020-09-03 21:26 | P.PNPSI_ITS ---
Subjective Subjective Date of Service: 09/03/20 Reason For Visit: unspecified schizophrenia Subjective Notes: Conditional Voluntary Interim History: Glo was cooperative and she had no immediate concerns She has been in behavioral control Medication Compliance: Yes Side effects from medications: No Attending Groups: Yes Review of Systems Acute medical concerns: No Medical Review of Systems: unchanged Review of Systems Review of Systems Yes all other systems are reviewed and are negative Mental Status Exam Mental Status Exam Patient Appearance: Appropriate Patient Orientation: Person, Place and Situation Level of Consciousness: Alert Patient Behavior: Talkative and Cooperative Mood Description: Withdrawn and Constricted Affect Description: Flat Patient Cognition Impaired: Yes Ability to Follow Directions: Good Speech Pattern: Clear and Spontaneous Speech Memory Description: Intact Hallucinations: None Delusions: Not Present Thought Process: Rumination Thought Content: positive for [place], positive for Circumstantial, negative for Suicidal Ideation and negative for Homicidal Ideation Depressive Symptoms: Increased Irritability and Thoughts of /Suicide (denies) Judgement: Good Diagnostics Vital Signs (24Hr): Vital Signs - 24 hr 09/03/20 06:00 Temperature 98.5 F Pulse Rate 83 Respiratory Rate 16 Blood Pressure 140/64 H Pulse Oximetry 100 Labs Results: 08/27/20 08:12 08/29/20 11:12 Medications Medications Current Medications Generic Name Dose Route Start Last Admin Trade Name Freq PRN Reason Stop Dose Admin Acetaminophen 975 mg 08/26/20 21:00 09/03/20 09:25 Acetaminophen 325 Mg Tablet PO 975 mg BID PAM Administration Al Hydroxide/Mg Hydroxide 30 ml 08/26/20 17:42 Magnesium Hydrox/Alum Hydrox 30 Ml Oral.Susp PO Q6H PRN Heartburn/Nausea Albuterol Sulfate 2 puff 08/27/20 10:15 Albuterol Sulfate 90 Mcg 8 Gm Inhaler INHALE Q4H PRN Shortness of Breath/Wheezing Benztropine Mesylate 1 mg 08/26/20 21:00 09/03/20 09:25 Benztropine Mesylate 1 Mg Tablet PO 1 mg BID PAM Administration Buspirone HCl 15 mg 08/26/20 21:00 09/03/20 09:24 Buspirone Hcl 5 Mg Tablet PO 15 mg BID PAM Administration Clonazepam 0.25 mg 08/26/20 21:00 09/03/20 09:24 Clonazepam 0.5 Mg Tablet PO 0.25 mg BID PAM Administration Divalproex Sodium 500 mg 08/26/20 21:00 09/03/20 15:20 Divalproex Sodium 500 Mg Tablet.Dr PO 500 mg TID PAM Administration Hydroxyzine HCl 25 mg 08/26/20 17:42 Hydroxyzine Hcl 25 Mg Tablet PO BEDTIME PRN Anxiety Ibuprofen 400 mg 08/26/20 18:00 08/31/20 11:19 Ibuprofen 400 Mg Tablet PO 400 mg Q8H PRN Administration pain Lidocaine 1 patch 08/28/20 09:00 09/03/20 09:30 Lidocaine 4 % Patch Adh..Patch TRANSDERMA 1 patch DAILY PAM Administration Protocol Loratadine 10 mg 08/27/20 09:00 09/03/20 09:25 Loratadine 10 Mg Tablet PO 10 mg DAILY PAM Administration Lorazepam 1 mg 08/26/20 18:03 Lorazepam 1 Mg Tablet PO Q4H PRN anxiety, agitation Magnesium Hydroxide 30 ml 08/26/20 17:42 Milk Of Magnesia 30 Ml Oral.Susp PO DAILY PRN Constipation Nitrofurantoin Macrocrystals 50 mg 08/26/20 21:00 09/03/20 17:07 Nitrofurantoin Macrocrystal 50 Mg Capsule PO 50 mg QID PAM Administration Olanzapine 5 mg 08/26/20 21:00 09/03/20 09:26 Olanzapine 5 Mg Tablet PO 5 mg BID PAM Administration Olanzapine 5 mg 08/26/20 18:02 Olanzapine 5 Mg Tablet PO Q4H PRN psychotic agitation Oxcarbazepine 150 mg 08/27/20 09:00 09/03/20 09:26 Oxcarbazepine 150 Mg Tablet PO 150 mg DAILY PAM Administration Oxcarbazepine 300 mg 08/26/20 21:00 09/02/20 23:22 Oxcarbazepine 300 Mg Tablet PO 300 mg BEDTIME PAM Administration Phenytoin Sodium 200 mg 08/26/20 21:00 09/03/20 09:25 Phenytoin Sodium Extended 100 Mg Capsule PO 200 mg BID PAM Administration Prednisone 40 mg 08/28/20 09:00 09/03/20 09:25 Prednisone 20 Mg Tablet PO 40 mg DAILY PAM Administration Pseudoephedrine HCl 30 mg 08/27/20 10:30 Pseudoephedrine Hcl 30 Mg Tablet PO Q4H PRN Nasal Congestion Risperidone 3 mg 08/26/20 21:00 09/03/20 09:25 Risperidone 3 Mg Tablet PO 3 mg BID PAM Administration Topiramate 100 mg 08/26/20 21:00 09/03/20 15:20 Topiramate 100 Mg Tablet PO 100 mg TID PAM Administration Trazodone HCl 50 mg 08/26/20 17:42 Trazodone Hcl 50 Mg Tablet PO BEDTIME PRN Insomnia Vitamin D 25 mcg 08/30/20 09:00 09/03/20 09:25 Cholecalciferol (Vitamin D3) 25 Mcg Tablet PO 25 mcg DAILY PAM Administration Allergies Allergies Allergy/AdvReac Type Severity Reaction Status Date / Time No Known Allergies Allergy Verified 08/26/20 17:05 Assessment & Plan Assessment & Plan (1) Intellectual disability: Status: Acute Code(s): F79 - Unspecified intellectual disabilities (2) Schizophrenia: Status: Acute Code(s): F20.9 - Schizophrenia, unspecified Assessment and Plan: CT current treatment plan without change Greater than 50% of the session was spent on counseling and/or coordination of care Patient educated on: diagnosis and medication risk/benefits Informed Consent: further education needed Reason for contiued inpatient stay Substantial Risk for: inability to function and rapid decompensation
[2020-09-03] MEDS: OXcarbazepine 300 MG TABLET PO (21:27)
[2020-09-04 06:47] VITALS: BP 133/63; PULSE 76; RESP 16; TEMP 36.3; O2SAT 99
[2020-09-04] MEDS: Lidocaine 4 % Patch ADH..PATCH 1 PATCH TRANSDERMA (09:08)
[2020-09-04] MEDS: Cholecalciferol (Vitamin D3) 25 MCG TABLET PO (09:10)
[2020-09-04] MEDS: nitrofurantoin macrocrystaL 50 MG CAPSULE PO ×4 (09:10→21:07)
[2020-09-04] MEDS: Phenytoin Sodium Extended 100 MG CAPSULE 200 MG PO ×2 (09:11→21:07)
[2020-09-04] MEDS: OLANZapine 5 MG TABLET PO ×2 (09:11→21:05)
[2020-09-04] MEDS: predniSONE 20 MG TABLET 40 MG PO (09:12)
[2020-09-04] MEDS: clonazePAM 0.5 MG TABLET 0.25 MG PO ×2 (09:12→21:07)
[2020-09-04] MEDS: Topiramate 100 MG TABLET PO ×3 (09:12→21:06)
[2020-09-04] MEDS: OXcarbazepine 150 MG TABLET PO (09:12)
[2020-09-04] MEDS: busPIRone HCl 5 MG TABLET 15 MG PO ×2 (09:13→21:06)
[2020-09-04] MEDS: Acetaminophen 325 MG TABLET 975 MG PO ×2 (09:13→21:05)
[2020-09-04] MEDS: Benztropine Mesylate 1 MG TABLET PO ×2 (09:14→21:08)
[2020-09-04] MEDS: risperiDONE 3 MG TABLET PO ×2 (09:14→21:09)
[2020-09-04] MEDS: Divalproex Sodium 500 MG TABLET.DR PO ×3 (09:14→21:08)
[2020-09-04] MEDS: Loratadine 10 MG TABLET PO (09:14)
--- NOTE | 2020-09-04 17:47 | P.PNPSI_ITS ---
Subjective Subjective Date of Service: 09/04/20 Reason For Visit: unspecified schizophrenia Interim History: Glo was cooperative and she had no immediate concerns She has been in behavioral control Medication Compliance: Yes Side effects from medications: No Attending Groups: Yes Review of Systems Acute medical concerns: No Medical Review of Systems: unchanged Review of Systems Review of Systems Yes all other systems are reviewed and are negative Eyes: Reports no additional eye complaints Reports system reviewed and no additional complaints, except as documented, Repo rts Normal hearing present and Reports nasal congestion Cardiovascular: Reports no additional cardiovascular complaints Respiratory: Reports no additional respiratory complaints Gastrointestinal: Reports no additional gastrointestinal complaints Musculoskeletal: Reports no additional musculoskeletal complaints, Reports abnormal gait, Reports back pain (sciatica pt does have PT at home but has refused PT at [facility] [place] and Reports other (reports sciatica sx) Skin/Breast: Reports system reviewed and no additional complaints, except as docu Reports as per HPI, Reports Normal hearing present, Reports abnormal gait and Reports behavioral changes Psychiatric: Reports as per HPI, Reports anxiety, Reports behavioral changes, Reports depression, Reports irritability, Reports mood swings and Reports suicidal ideation (denies) Endocrine: Reports no additional endocrine complaints Hematologic/Lymphatic: Reports no additional hematologic/lymphatic complaints Allergic/Immunologic: Reports no additional allergic/immunologic complaints Mental Status Exam Mental Status Exam Patient Appearance: Appropriate Patient Orientation: Person, Place and Situation Level of Consciousness: Alert Patient Behavior: Talkative and Cooperative Mood Description: Withdrawn and Constricted Affect Description: Flat Patient Cognition Impaired: Yes Ability to Follow Directions: Good Speech Pattern: Clear and Spontaneous Speech Memory Description: Intact Hallucinations: None Delusions: Not Present Thought Process: Intact Thought Content: positive for [place]um[place], negative for Suicidal Ideation and negative for Homicidal Ideation Judgement: Fair Diagnostics Vital Signs (24Hr): Vital Signs - 24 hr 09/04/20 06:47 Temperature 97.4 F Pulse Rate 76 Respiratory Rate 16 Blood Pressure 133/63 Pulse Oximetry 99 Labs Results: 08/27/20 08:12 08/29/20 11:12 Medications Medications Current Medications Generic Name Dose Route Start Last Admin Trade Name Freq PRN Reason Stop Dose Admin Acetaminophen 975 mg 08/26/20 21:00 09/04/20 09:13 Acetaminophen 325 Mg Tablet PO 975 mg BID PAM Administration Al Hydroxide/Mg Hydroxide 30 ml 08/26/20 17:42 Magnesium Hydrox/Alum Hydrox 30 Ml Oral.Susp PO Q6H PRN Heartburn/Nausea Albuterol Sulfate 2 puff 08/27/20 10:15 Albuterol Sulfate 90 Mcg 8 Gm Inhaler INHALE Q4H PRN Shortness of Breath/Wheezing Benztropine Mesylate 1 mg 08/26/20 21:00 09/04/20 09:14 Benztropine Mesylate 1 Mg Tablet PO 1 mg BID PAM Administration Buspirone HCl 15 mg 08/26/20 21:00 09/04/20 09:13 Buspirone Hcl 5 Mg Tablet PO 15 mg BID PAM Administration Clonazepam 0.25 mg 08/26/20 21:00 09/04/20 09:12 Clonazepam 0.5 Mg Tablet PO 0.25 mg BID PAM Administration Divalproex Sodium 500 mg 08/26/20 21:00 09/04/20 14:03 Divalproex Sodium 500 Mg Tablet.Dr PO 500 mg TID PAM Administration Hydroxyzine HCl 25 mg 08/26/20 17:42 Hydroxyzine Hcl 25 Mg Tablet PO BEDTIME PRN Anxiety Ibuprofen 400 mg 08/26/20 18:00 08/31/20 11:19 Ibuprofen 400 Mg Tablet PO 400 mg Q8H PRN Administration pain Lidocaine 1 patch 08/28/20 09:00 09/04/20 09:08 Lidocaine 4 % Patch Adh..Patch TRANSDERMA 1 patch DAILY PAM Administration Protocol Loratadine 10 mg 08/27/20 09:00 09/04/20 09:14 Loratadine 10 Mg Tablet PO 10 mg DAILY PAM Administration Lorazepam 1 mg 08/26/20 18:03 Lorazepam 1 Mg Tablet PO Q4H PRN anxiety, agitation Magnesium Hydroxide 30 ml 08/26/20 17:42 Milk Of Magnesia 30 Ml Oral.Susp PO DAILY PRN Constipation Nitrofurantoin Macrocrystals 50 mg 08/26/20 21:00 09/04/20 17:41 Nitrofurantoin Macrocrystal 50 Mg Capsule PO 50 mg QID PAM Administration Olanzapine 5 mg 08/26/20 21:00 09/04/20 09:11 Olanzapine 5 Mg Tablet PO 5 mg BID PAM Administration Olanzapine 5 mg 08/26/20 18:02 Olanzapine 5 Mg Tablet PO Q4H PRN psychotic agitation Oxcarbazepine 150 mg 08/27/20 09:00 09/04/20 09:12 Oxcarbazepine 150 Mg Tablet PO 150 mg DAILY PAM Administration Oxcarbazepine 300 mg 08/26/20 21:00 09/03/20 21:27 Oxcarbazepine 300 Mg Tablet PO 300 mg BEDTIME PAM Administration Phenytoin Sodium 200 mg 08/26/20 21:00 09/04/20 09:11 Phenytoin Sodium Extended 100 Mg Capsule PO 200 mg BID PAM Administration Prednisone 40 mg 08/28/20 09:00 09/04/20 09:12 Prednisone 20 Mg Tablet PO 40 mg DAILY PAM Administration Pseudoephedrine HCl 30 mg 08/27/20 10:30 Pseudoephedrine Hcl 30 Mg Tablet PO Q4H PRN Nasal Congestion Risperidone 3 mg 08/26/20 21:00 09/04/20 09:14 Risperidone 3 Mg Tablet PO 3 mg BID PAM Administration Topiramate 100 mg 08/26/20 21:00 09/04/20 14:03 Topiramate 100 Mg Tablet PO 100 mg TID PAM Administration Trazodone HCl 50 mg 08/26/20 17:42 Trazodone Hcl 50 Mg Tablet PO BEDTIME PRN Insomnia Vitamin D 25 mcg 08/30/20 09:00 09/04/20 09:10 Cholecalciferol (Vitamin D3) 25 Mcg Tablet PO 25 mcg DAILY PAM Administration Allergies Allergies Allergy/AdvReac Type Severity Reaction Status Date / Time No Known Allergies Allergy Verified 08/26/20 17:05 Assessment & Plan Assessment & Plan (1) Intellectual disability: Status: Acute Code(s): F79 - Unspecified intellectual disabilities (2) Schizophrenia: Status: Acute Code(s): F20.9 - Schizophrenia, unspecified Assessment and Plan: CT current treatment plan without change Greater than 50% of the session was spent on counseling and/or coordination of care Patient educated on: diagnosis and medication risk/benefits Reason for contiued inpatient stay Substantial Risk for: inability to function and rapid decompensation
[2020-09-04 19:10] VITALS: BP 124/59; PULSE 95; TEMP 37.1
[2020-09-04] MEDS: OXcarbazepine 300 MG TABLET PO (21:07)
[2020-09-05 04:50] VITALS: BP 132/62; PULSE 82; RESP 18; TEMP 36.9; O2SAT 99
[2020-09-05] MEDS: OXcarbazepine 150 MG TABLET PO (09:07)
[2020-09-05] MEDS: Benztropine Mesylate 1 MG TABLET PO ×2 (09:07→21:21)
[2020-09-05] MEDS: Topiramate 100 MG TABLET PO ×3 (09:07→21:21)
[2020-09-05] MEDS: risperiDONE 3 MG TABLET PO ×2 (09:07→21:21)
[2020-09-05] MEDS: nitrofurantoin macrocrystaL 50 MG CAPSULE PO ×4 (09:07→21:21)
[2020-09-05] MEDS: Loratadine 10 MG TABLET PO (09:07)
[2020-09-05] MEDS: Lidocaine 4 % Patch ADH..PATCH 1 PATCH TRANSDERMA (09:07)
[2020-09-05] MEDS: OLANZapine 5 MG TABLET PO ×2 (09:07→21:21)
[2020-09-05] MEDS: predniSONE 20 MG TABLET 40 MG PO (09:08)
[2020-09-05] MEDS: Divalproex Sodium 500 MG TABLET.DR PO ×3 (09:08→21:20)
[2020-09-05] MEDS: Phenytoin Sodium Extended 100 MG CAPSULE 200 MG PO ×2 (09:08→21:21)
[2020-09-05] MEDS: busPIRone HCl 5 MG TABLET 15 MG PO ×2 (09:08→21:21)
[2020-09-05] MEDS: Cholecalciferol (Vitamin D3) 25 MCG TABLET PO (09:08)
[2020-09-05] MEDS: Acetaminophen 325 MG TABLET 975 MG PO ×2 (09:08→21:20)
[2020-09-05 09:50] LABS: Phenytoin Dilantin 17.7 ug/mL (10.0-20.0)
--- NOTE | 2020-09-05 15:37 | P.PNPSI_ITS ---
Subjective Subjective Date of Service: 09/06/20 Reason For Visit: unspecified schizophrenia Subjective Notes: Conditional Voluntary Interim History: Glo reports sciatic pain-improved with the addition of the Lidocaine patch. Reports sleep, appetite are fine . Denies SI, HI. Discussed not feeling wanted at her skilled nursing-believes that people are taking things away which does not feel supportive. Denies aggression. Admits to feeling irritable and frustrated when the person walking with a walker in front of her stops and she needs to wait. Discussed worry about her belongings being taken, and not feeling trustful of her residential team. Reports her sister Zakiya visited over the weekend. Will allow TW to call Zakiya. Message left this afternoon. Zakiya tells Agnes ALVARADO pt remains psychotic, agitated, feels she is a threat to the skilled nursing and needs a psychiatric intermediate. Will call Zakiya. Medication Compliance: Yes Side effects from medications: No Attending Groups: Yes Review of Systems Musculoskeletal: Reports back pain (sciatica) and Reports other (leg pain- sciatica) Reports behavioral changes Psychiatric: Reports behavioral changes, Reports paranoia, Reports homicidal ideation (denies) and Reports suicidal ideation (denies) Mental Status Exam Mental Status Exam Patient Appearance: Appropriate Patient Orientation: Person and Place Level of Consciousness: Alert Patient Behavior: Talkative, Cooperative and Good Eye Contact Diagnostics Vital Signs (24Hr): Vital Signs - 24 hr 09/04/20 19:10 09/05/20 04:50 Temperature 98.7 F 98.4 F Pulse Rate 95 82 Respiratory Rate 18 Blood Pressure 124/59 L 132/62 Pulse Oximetry 99 Labs Results: 08/27/20 08:12 08/29/20 11:12 Labs: Laboratory Results - last 48 hr 09/05/20 08:59 Phenytoin 17.7 Medications Medications Current Medications Generic Name Dose Route Start Last Admin Trade Name Freq PRN Reason Stop Dose Admin Acetaminophen 975 mg 08/26/20 21:00 09/05/20 09:08 Acetaminophen 325 Mg Tablet PO 975 mg BID PAM Administration Al Hydroxide/Mg Hydroxide 30 ml 08/26/20 17:42 Magnesium Hydrox/Alum Hydrox 30 Ml Oral.Susp PO Q6H PRN Heartburn/Nausea Albuterol Sulfate 2 puff 08/27/20 10:15 Albuterol Sulfate 90 Mcg 8 Gm Inhaler INHALE Q4H PRN Shortness of Breath/Wheezing Benztropine Mesylate 1 mg 08/26/20 21:00 09/05/20 09:07 Benztropine Mesylate 1 Mg Tablet PO 1 mg BID PAM Administration Buspirone HCl 15 mg 08/26/20 21:00 09/05/20 09:08 Buspirone Hcl 5 Mg Tablet PO 15 mg BID PAM Administration Divalproex Sodium 500 mg 08/26/20 21:00 09/05/20 14:08 Divalproex Sodium 500 Mg Tablet.Dr PO 500 mg TID PAM Administration Hydroxyzine HCl 25 mg 08/26/20 17:42 Hydroxyzine Hcl 25 Mg Tablet PO BEDTIME PRN Anxiety Ibuprofen 400 mg 08/26/20 18:00 08/31/20 11:19 Ibuprofen 400 Mg Tablet PO 400 mg Q8H PRN Administration pain Lidocaine 1 patch 08/28/20 09:00 09/05/20 09:07 Lidocaine 4 % Patch Adh..Patch TRANSDERMA 1 patch DAILY PAM Administration Protocol Loratadine 10 mg 08/27/20 09:00 09/05/20 09:07 Loratadine 10 Mg Tablet PO 10 mg DAILY PAM Administration Magnesium Hydroxide 30 ml 08/26/20 17:42 Milk Of Magnesia 30 Ml Oral.Susp PO DAILY PRN Constipation Nitrofurantoin Macrocrystals 50 mg 08/26/20 21:00 09/05/20 14:08 Nitrofurantoin Macrocrystal 50 Mg Capsule PO 50 mg QID PAM Administration Olanzapine 5 mg 08/26/20 21:00 09/05/20 09:07 Olanzapine 5 Mg Tablet PO 5 mg BID PAM Administration Olanzapine 5 mg 08/26/20 18:02 Olanzapine 5 Mg Tablet PO Q4H PRN psychotic agitation Oxcarbazepine 150 mg 08/27/20 09:00 09/05/20 09:07 Oxcarbazepine 150 Mg Tablet PO 150 mg DAILY PAM Administration Oxcarbazepine 300 mg 08/26/20 21:00 09/04/20 21:07 Oxcarbazepine 300 Mg Tablet PO 300 mg BEDTIME PAM Administration Phenytoin Sodium 200 mg 08/26/20 21:00 09/05/20 09:08 Phenytoin Sodium Extended 100 Mg Capsule PO 200 mg BID PAM Administration Prednisone 40 mg 08/28/20 09:00 09/05/20 09:08 Prednisone 20 Mg Tablet PO 40 mg DAILY PAM Administration Pseudoephedrine HCl 30 mg 08/27/20 10:30 Pseudoephedrine Hcl 30 Mg Tablet PO Q4H PRN Nasal Congestion Risperidone 3 mg 08/26/20 21:00 09/05/20 09:07 Risperidone 3 Mg Tablet PO 3 mg BID PAM Administration Topiramate 100 mg 08/26/20 21:00 09/05/20 14:08 Topiramate 100 Mg Tablet PO 100 mg TID PAM Administration Trazodone HCl 50 mg 08/26/20 17:42 Trazodone Hcl 50 Mg Tablet PO BEDTIME PRN Insomnia Vitamin D 25 mcg 08/30/20 09:00 09/05/20 09:08 Cholecalciferol (Vitamin D3) 25 Mcg Tablet PO 25 mcg DAILY PAM Administration Allergies Allergies Allergy/AdvReac Type Severity Reaction Status Date / Time No Known Allergies Allergy Verified 08/26/20 17:05 Assessment & Plan Assessment & Plan (1) Intellectual disability: Status: Acute Code(s): F79 - Unspecified intellectual disabilities (2) Schizophrenia: Status: Acute Code(s): F20.9 - Schizophrenia, unspecified Greater than 50% of the session was spent on counseling and/or coordination of care Reason for contiued inpatient stay Substantial Risk for: harm to others and rapid decompensation
[2020-09-05 18:00] VITALS: BP 134/68; PULSE 84; TEMP 36.9
[2020-09-05] MEDS: OXcarbazepine 300 MG TABLET PO (21:20)
[2020-09-06 06:10] VITALS: BP 121/58; PULSE 94; RESP 18; TEMP 36.3; O2SAT 98
[2020-09-06] MEDS: Cholecalciferol (Vitamin D3) 25 MCG TABLET PO (08:56)
[2020-09-06] MEDS: busPIRone HCl 5 MG TABLET 15 MG PO ×2 (08:56→21:10)
[2020-09-06] MEDS: Benztropine Mesylate 1 MG TABLET PO ×2 (08:56→21:10)
[2020-09-06] MEDS: Acetaminophen 325 MG TABLET 975 MG PO ×2 (08:56→21:09)
[2020-09-06] MEDS: Divalproex Sodium 500 MG TABLET.DR PO ×3 (08:56→21:10)
[2020-09-06] MEDS: Phenytoin Sodium Extended 100 MG CAPSULE 200 MG PO ×2 (08:57→21:09)
[2020-09-06] MEDS: OLANZapine 5 MG TABLET PO ×2 (08:57→21:10)
[2020-09-06] MEDS: nitrofurantoin macrocrystaL 50 MG CAPSULE PO ×4 (08:57→21:09)
[2020-09-06] MEDS: OXcarbazepine 150 MG TABLET PO (08:57)
[2020-09-06] MEDS: predniSONE 20 MG TABLET 40 MG PO (08:57)
[2020-09-06] MEDS: Loratadine 10 MG TABLET PO (08:57)
[2020-09-06] MEDS: Lidocaine 4 % Patch ADH..PATCH 1 PATCH TRANSDERMA (08:57)
[2020-09-06] MEDS: risperiDONE 3 MG TABLET PO ×2 (08:57→21:10)
[2020-09-06] MEDS: Topiramate 100 MG TABLET PO ×3 (08:58→21:10)
[2020-09-06 09:06] LABS: Cholesterol 216 mg/dL; Glucose Fasting 86 mg/dL (60-99); HDL Cholesterol 84 mg/dL; LDL Cholesterol Calculated 104 mg/dl; Triglycerides 140 mg/dL
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
[2020-09-06 19:55] VITALS: BP 137/63; PULSE 83; TEMP 36.6
[2020-09-06] MEDS: OXcarbazepine 300 MG TABLET PO (21:10)
[2020-09-07 06:00] VITALS: BP 142/76; PULSE 91; RESP 16; TEMP 36.2; O2SAT 97
[2020-09-07] MEDS: Acetaminophen 325 MG TABLET 975 MG PO ×2 (09:18→20:57)
[2020-09-07] MEDS: Topiramate 100 MG TABLET PO ×3 (09:18→20:58)
[2020-09-07] MEDS: Loratadine 10 MG TABLET PO (09:18)
[2020-09-07] MEDS: busPIRone HCl 5 MG TABLET 15 MG PO ×2 (09:18→20:56)
[2020-09-07] MEDS: predniSONE 20 MG TABLET 40 MG PO (09:18)
[2020-09-07] MEDS: risperiDONE 3 MG TABLET PO ×2 (09:18→20:59)
[2020-09-07] MEDS: OXcarbazepine 150 MG TABLET PO (09:18)
[2020-09-07] MEDS: Benztropine Mesylate 1 MG TABLET PO ×2 (09:18→20:57)
[2020-09-07] MEDS: nitrofurantoin macrocrystaL 50 MG CAPSULE PO ×4 (09:18→20:58)
[2020-09-07] MEDS: Phenytoin Sodium Extended 100 MG CAPSULE 200 MG PO ×2 (09:18→20:57)
[2020-09-07] MEDS: Cholecalciferol (Vitamin D3) 25 MCG TABLET PO (09:18)
[2020-09-07] MEDS: OLANZapine 5 MG TABLET PO ×2 (09:18→20:58)
[2020-09-07] MEDS: Divalproex Sodium 500 MG TABLET.DR PO ×3 (09:19→20:56)
[2020-09-07] MEDS: Lidocaine 4 % Patch ADH..PATCH 1 PATCH TRANSDERMA (09:19)
--- NOTE | 2020-09-07 12:31 | HO.PSYCHPN ---
Subjective Subjective Date of Service: 09/07/20 Reason For Visit: unspecified schizophrenia Subjective Notes: Conditional Voluntary Interim History: Glo will return to her retirement on 09/08. Today she is working on an OT project for her window in her room. She refers to it as a dream catcher. She is alert, oriented, she reports back pain, denies depressive symptoms, has situational frustration which is relieved with team support and redirection. She denies SI, HI. There is no evidence of psychosis-she does report she will be glad to return to her home and belongings as she has worried about belongings being taken. She reports sleep and appetite are without problem today. Review of Systems Musculoskeletal: Reports back pain and Reports other (sciatica) Psychiatric: Reports irritability (low frustration tolerance observed at times) and Reports suicidal ideation (denies) Mental Status Exam Mental Status Exam Patient Appearance: Appropriate Patient Orientation: Person, Place, Time and Situation Level of Consciousness: Alert Patient Behavior: Talkative, Cooperative, Isolative and Good Eye Contact Mood Description: Calm and Constricted Affect Description: Calm and Constricted Patient Cognition Impaired: Yes Ability to Follow Directions: Good Speech Pattern: Monotone, Spontaneous Speech and Delayed Memory Description: Intact Hallucinations: None Delusions: Not Present (at times, worries her belongings at her home will be taken and feels she is not liked at her home.) Thought Process: Goal Oriented and Slowed Thinking Thought Content: positive for [place], positive for Circumstantial and positive for Goal Oriented Judgement: Fair Diagnostics Vital Signs (24Hr): Vital Signs - 24 hr 09/06/20 19:55 09/07/20 06:00 Temperature 97.9 F 97.2 F Pulse Rate 83 91 Respiratory Rate 16 Blood Pressure 137/63 142/76 H Pulse Oximetry 97 Labs Results: 08/27/20 08:12 08/29/20 11:12 Labs: Laboratory Results - last 48 hr 09/06/20 07:54 Fasting Glucose 86 Triglycerides 140 Cholesterol 216 LDL Cholesterol, Calc 104 HDL Cholesterol 84 Medications Medications Current Medications Generic Name Dose Route Start Last Admin Trade Name Freq PRN Reason Stop Dose Admin Acetaminophen 975 mg 08/26/20 21:00 09/07/20 09:18 Acetaminophen 325 Mg Tablet PO 975 mg BID PAM Administration Al Hydroxide/Mg Hydroxide 30 ml 08/26/20 17:42 Magnesium Hydrox/Alum Hydrox 30 Ml Oral.Susp PO Q6H PRN Heartburn/Nausea Albuterol Sulfate 2 puff 08/27/20 10:15 Albuterol Sulfate 90 Mcg 8 Gm Inhaler INHALE Q4H PRN Shortness of Breath/Wheezing Benztropine Mesylate 1 mg 08/26/20 21:00 09/07/20 09:18 Benztropine Mesylate 1 Mg Tablet PO 1 mg BID PAM Administration Buspirone HCl 15 mg 08/26/20 21:00 09/07/20 09:18 Buspirone Hcl 5 Mg Tablet PO 15 mg BID PAM Administration Divalproex Sodium 500 mg 08/26/20 21:00 09/07/20 09:19 Divalproex Sodium 500 Mg Tablet.Dr PO 500 mg TID PAM Administration Hydroxyzine HCl 25 mg 08/26/20 17:42 Hydroxyzine Hcl 25 Mg Tablet PO BEDTIME PRN Anxiety Ibuprofen 400 mg 08/26/20 18:00 08/31/20 11:19 Ibuprofen 400 Mg Tablet PO 400 mg Q8H PRN Administration pain Lidocaine 1 patch 08/28/20 09:00 09/07/20 09:19 Lidocaine 4 % Patch Adh..Patch TRANSDERMA 1 patch DAILY PAM Administration Protocol Loratadine 10 mg 08/27/20 09:00 09/07/20 09:18 Loratadine 10 Mg Tablet PO 10 mg DAILY PAM Administration Magnesium Hydroxide 30 ml 08/26/20 17:42 Milk Of Magnesia 30 Ml Oral.Susp PO DAILY PRN Constipation Nitrofurantoin Macrocrystals 50 mg 08/26/20 21:00 09/07/20 09:18 Nitrofurantoin Macrocrystal 50 Mg Capsule PO 50 mg QID PAM Administration Olanzapine 5 mg 08/26/20 21:00 09/07/20 09:18 Olanzapine 5 Mg Tablet PO 5 mg BID PAM Administration Olanzapine 5 mg 08/26/20 18:02 Olanzapine 5 Mg Tablet PO Q4H PRN psychotic agitation Oxcarbazepine 150 mg 08/27/20 09:00 09/07/20 09:18 Oxcarbazepine 150 Mg Tablet PO 150 mg DAILY PAM Administration Oxcarbazepine 300 mg 08/26/20 21:00 09/06/20 21:10 Oxcarbazepine 300 Mg Tablet PO 300 mg BEDTIME PAM Administration Phenytoin Sodium 200 mg 08/26/20 21:00 09/07/20 09:18 Phenytoin Sodium Extended 100 Mg Capsule PO 200 mg BID PAM Administration Prednisone 40 mg 08/28/20 09:00 09/07/20 09:18 Prednisone 20 Mg Tablet PO 40 mg DAILY PAM Administration Pseudoephedrine HCl 30 mg 08/27/20 10:30 Pseudoephedrine Hcl 30 Mg Tablet PO Q4H PRN Nasal Congestion Risperidone 3 mg 08/26/20 21:00 09/07/20 09:18 Risperidone 3 Mg Tablet PO 3 mg BID PAM Administration Topiramate 100 mg 08/26/20 21:00 09/07/20 09:18 Topiramate 100 Mg Tablet PO 100 mg TID PAM Administration Trazodone HCl 50 mg 08/26/20 17:42 Trazodone Hcl 50 Mg Tablet PO BEDTIME PRN Insomnia Vitamin D 25 mcg 08/30/20 09:00 09/07/20 09:18 Cholecalciferol (Vitamin D3) 25 Mcg Tablet PO 25 mcg DAILY PAM Administration Allergies Allergies Allergy/AdvReac Type Severity Reaction Status Date / Time No Known Allergies Allergy Verified 08/26/20 17:05 Assessment & Plan Assessment & Plan (1) Intellectual disability: Status: Acute Code(s): F79 - Unspecified intellectual disabilities Assessment and Plan: Glo is participating in the milieu and will return to her retirement on 09/08. (2) Schizophrenia: Status: Acute Code(s): F20.9 - Schizophrenia, unspecified Assessment and Plan: Affect and mood are constricted' thought process and content are intact. No medication changes have been needed. (3) Asthma: Status: Acute Code(s): J45.909 - Unspecified asthma, uncomplicated Assessment and Plan: Pt reports well managed. Continue prednisone and prn inhaler (4) Back pain: Status: Acute Code(s): M54.9 - Dorsalgia, unspecified Assessment and Plan: Pt finds relief with Lidocaine patch and uses her walker faithfully. Continue this plan Greater than 50% of the session was spent on counseling and/or coordination of care Reason for contiued inpatient stay Substantial Risk for: stable for discharge
[2020-09-07 16:30] VITALS: BP 117/55; PULSE 79; TEMP 36.8
[2020-09-07] MEDS: OXcarbazepine 300 MG TABLET PO (20:58)
[2020-09-08 05:45] VITALS: BP 133/66; PULSE 82; RESP 18; TEMP 36.3; O2SAT 96
[2020-09-08] MEDS: busPIRone HCl 5 MG TABLET 15 MG PO (09:03)
[2020-09-08] MEDS: Benztropine Mesylate 1 MG TABLET PO (09:03)
[2020-09-08] MEDS: Lidocaine 4 % Patch ADH..PATCH 1 PATCH TRANSDERMA (09:03)
[2020-09-08] MEDS: Loratadine 10 MG TABLET PO (09:04)
[2020-09-08] MEDS: Cholecalciferol (Vitamin D3) 25 MCG TABLET PO (09:04)
[2020-09-08] MEDS: predniSONE 20 MG TABLET 40 MG PO (09:04)
[2020-09-08] MEDS: OXcarbazepine 150 MG TABLET PO (09:04)
[2020-09-08] MEDS: Acetaminophen 325 MG TABLET 975 MG PO (09:04)
[2020-09-08] MEDS: risperiDONE 3 MG TABLET PO (09:04)
[2020-09-08] MEDS: Phenytoin Sodium Extended 100 MG CAPSULE 200 MG PO (09:04)
[2020-09-08] MEDS: Topiramate 100 MG TABLET PO (09:04)
[2020-09-08] MEDS: Divalproex Sodium 500 MG TABLET.DR PO (09:04)
[2020-09-08] MEDS: nitrofurantoin macrocrystaL 50 MG CAPSULE PO ×2 (09:04→12:49)
[2020-09-08] MEDS: OLANZapine 5 MG TABLET PO (09:05)
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
== END 2020-09-08 14:56 | disposition home or self-care (01) | DRG 885 ==
PROVIDERS: Admitting Provider Psychiatry & Neurology Psychiatry; PCP Internal Medicine; Visit Provider Clinical Nurse Specialist Psychiatric/Mental Health, Adult
DX: F20.9 Schizophrenia, unspecified (principal); F79 Unspecified intellectual disabilities; F43.10 Post-traumatic stress disorder, unspecified; K21.9 Gastro-esophageal reflux disease without esophagitis; G40.909 Epilepsy, unspecified, not intractable, without status epilepticus; G89.29 Other chronic pain; Z79.52 Long term (current) use of systemic steroids; Z79.899 Other long term (current) drug therapy
CPT/HCPCS: 36415; 80053; 80061; 80164; 80185; 82306; 82607; 82746; 82947; 83036; 84443; 85025; 93005; 95816; 99232

== ENCOUNTER 2021-02-02 12:54 | Emergency (ER) | payer MEDICARE, MEDICAID, SELFPAY ==
--- NOTE | ~2021-02-02 | CT_ITS ---
EXAMINATION: CT HEAD WITHOUT CONTRAST CLINICAL INFORMATION: Fall hitting head COMPARISON: None TECHNIQUE: Contiguous axial imaging was performed from the skull base to vertex without intravenous administration of contrast. This CT examination was performed using dose optimization techniques as appropriate, variously including the following: *Automated exposure control *Adjustment of mA and/or kV according to patient size (this includes techniques or standardized protocols for targeted exams where dose is matched to indication/reason for exam; i.e. extremities or head) *Use of iterative reconstruction technique DLP: 642 mGy-cm FINDINGS: There is no evidence of acute intracranial hemorrhage or territorial infarction. No abnormal mass effect or midline shift is seen. Velazco to white matter differentiation is well preserved. No extra-axial fluid collections are identified. The ventricles are normal in size. There is no abnormal attenuation within the brain parenchyma. The osseous structures are normal. The mastoid air cells and visualized portions of the paranasal sinuses are well aerated. There is a small scalp hematoma seen at the vertex. CT/CT head/brain wo con IMPRESSION: No acute intracranial pathology.
[2021-02-02 12:59] VITALS: BP 140/68; PULSE 76; RESP 18; TEMP 36.9; O2SAT 98; BMI 42.9
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
[2021-02-02] MEDS: Ibuprofen 600 MG TABLET PO (17:29)
== END 2021-02-02 17:36 | disposition home or self-care (01) ==
PROVIDERS: Emergency Provider Emergency Medicine; PCP Internal Medicine
DX: S00.03XA Contusion of scalp, initial encounter (principal); G44.309 Post-traumatic headache, unspecified, not intractable; W51.XXXA Accidental striking against or bumped into by another person, initial encounter; Y93.9 Activity, unspecified; Y92.9 Unspecified place or not applicable; Z79.899 Other long term (current) drug therapy; Y99.9 Unspecified external cause status
CPT/HCPCS: 70450; 99283; 99284

== ENCOUNTER 2021-07-26 16:17 | Outpatient (REF) | payer MEDICARE, MEDICAID, SELFPAY ==
[2021-07-26 17:46] LABS: Phenytoin Dilantin 22.3 ug/mL (10.0-20.0); Valproate 54.9 mcg/mL (50.0-100.0)
== END 2021-07-26 16:18 | disposition home or self-care (01) ==
LOC: HO.LAB 16:17
PROVIDERS: PCP Internal Medicine; Visit Provider Psychiatry & Neurology Neurology
DX: R56.9 Unspecified convulsions (principal); Z79.899 Other long term (current) drug therapy
CPT/HCPCS: 36415; 80164; 80185

== ENCOUNTER 2022-09-03 09:57 | Outpatient (REF) | payer MEDICARE, MEDICAID, SELFPAY ==
[2022-09-03 12:13] LABS: Anion Gap 12 (12-20); Blood Urea Nitrogen 16 mg/dL (9-16); Calcium 8.9 mg/dL (8.4-10.2); Carbon Dioxide 27 mmol/L (22-29); Chloride 106 mmol/L (96-108); Estimated Glomerular Filt Rate > 60; Glucose Random 89 mg/dL (60-115); Potassium 4.6 mmol/L (3.3-5.1); Sodium 140 mmol/L (135-145)
[2022-09-03 12:18] LABS: Phenytoin Dilantin 29.7 ug/mL (10.0-20.0); Valproate 68.1 mcg/mL (50.0-100.0)
[2022-09-07 14:44] LABS: Oxcarbazepine 4.6 mcg/mL (8.0-35.0)
== END 2022-09-03 09:58 | disposition home or self-care (01) ==
LOC: HO.LAB 09:57
PROVIDERS: PCP Internal Medicine; Visit Provider Psychiatry & Neurology Neurology
DX: R56.9 Unspecified convulsions (principal); Z79.899 Other long term (current) drug therapy
CPT/HCPCS: 36415; 80048; 80164; 80185; 80339

== ENCOUNTER 2022-09-13 12:39 | Outpatient (REF) | payer MEDICARE, MEDICAID, SELFPAY ==
[2022-09-13 13:40] LABS: Phenytoin Dilantin 21.7 ug/mL (10.0-20.0)
== END 2022-09-13 12:40 | disposition home or self-care (01) ==
LOC: HO.LAB 12:39
PROVIDERS: PCP Internal Medicine; Visit Provider Psychiatry & Neurology Neurology
DX: R56.9 Unspecified convulsions (principal); Z51.81 Encounter for therapeutic drug level monitoring; Z79.899 Other long term (current) drug therapy
CPT/HCPCS: 36415; 80185

== ENCOUNTER 2023-02-19 14:18 | Outpatient (REF) | payer MEDICARE, MEDICAID, SELFPAY ==
[2023-02-19 16:14] LABS: Phenytoin Dilantin 13.7 ug/mL (10.0-20.0)
== END 2023-02-19 14:19 | disposition home or self-care (01) ==
LOC: HO.LAB 14:18
PROVIDERS: Visit Provider Psychiatry & Neurology Neurology
DX: R56.9 Unspecified convulsions (principal)
CPT/HCPCS: 36415; 80185

== ENCOUNTER 2023-04-15 16:51 | Outpatient (REF) | payer MEDICARE, MEDICAID, SELFPAY ==
[2023-04-15 18:27] LABS: Phenytoin Dilantin 14.8 ug/mL (10.0-20.0); Valproate 20.3 mcg/mL (50.0-100.0)
[2023-04-19 17:53] LABS: Topiramate 3.7 mcg/mL (see note)
== END 2023-04-15 16:52 | disposition home or self-care (01) ==
LOC: HO.LAB 16:51
PROVIDERS: PCP Internal Medicine; Visit Provider Psychiatry & Neurology Neurology
DX: G40.909 Epilepsy, unspecified, not intractable, without status epilepticus (principal)
CPT/HCPCS: 36415; 80164; 80185; 80201

== ENCOUNTER 2023-05-15 15:58 | Outpatient (REF) | payer MEDICARE, MEDICAID, SELFPAY | END 2023-05-15 15:59 | disposition home or self-care (01) | LOC: HO.LAB 15:58 | PROVIDERS: Visit Provider Psychiatry & Neurology Neurology | DX: G40.909 Epilepsy, unspecified, not intractable, without status epilepticus (principal) | CPT/HCPCS: 36415; 80164 ==

== ENCOUNTER 2023-08-30 15:39 | Outpatient (REF) | payer MEDICARE, MEDICAID, SELFPAY ==
[2023-08-30 18:32] LABS: Valproate 74.5 mcg/mL (50.0-100.0)
[2023-08-30 18:43] LABS: Phenytoin Dilantin 11.6 ug/mL (10.0-20.0)
== END 2023-08-30 15:40 | disposition home or self-care (01) ==
LOC: HO.LAB 15:39
PROVIDERS: Visit Provider Psychiatry & Neurology Neurology
DX: R56.9 Unspecified convulsions (principal); Z79.899 Other long term (current) drug therapy
CPT/HCPCS: 36415; 80164; 80185

== ENCOUNTER 2023-11-20 13:16 | Outpatient (REF) | payer MEDICARE, MEDICAID, SELFPAY ==
[2023-11-20 14:46] LABS: Anion Gap 13 (12-20); Carbon Dioxide 26 mmol/L (22-29); Chloride 103 mmol/L (96-108); Potassium 4.2 mmol/L (3.3-5.1); Sodium 138 mmol/L (135-145)
[2023-11-20 15:01] LABS: Phenytoin Dilantin 14.9 ug/mL (10.0-20.0); Valproate 71.7 mcg/mL (50.0-100.0)
== END 2023-11-20 13:17 | disposition home or self-care (01) ==
LOC: HO.LAB 13:16
PROVIDERS: Visit Provider Psychiatry & Neurology Neurology
DX: R56.9 Unspecified convulsions (principal)
CPT/HCPCS: 36415; 80051; 80164; 80185

== ENCOUNTER 2024-01-22 14:36 | Outpatient (REF) | payer MEDICARE, MEDICAID, SELFPAY ==
[2024-01-22 16:32] LABS: Phenytoin Dilantin 12.9 ug/mL (10.0-20.0); Valproate 68.2 mcg/mL (50.0-100.0)
== END 2024-01-22 14:37 | disposition home or self-care (01) ==
LOC: HO.LAB 14:36
PROVIDERS: PCP Internal Medicine; Visit Provider Psychiatry & Neurology Neurology
DX: R56.9 Unspecified convulsions (principal)
CPT/HCPCS: 36415; 80164; 80185

== ENCOUNTER 2024-09-14 13:25 | Outpatient (REF) | payer MEDICARE, MEDICAID, SELFPAY ==
[2024-09-14 14:20] LABS: Phenytoin Dilantin 13.7 ug/mL (10.0-20.0); Valproate 63.4 mcg/mL (50.0-100.0)
--- OUTSIDE RECORDS SUMMARY | 2024-09-14 15:25 | XMS_ITS | Clinical Summary ---
Author Organization [address] Address [address] [place] [address] Phone Care Team Providers Care Audio Visual Collections Coordinator Name Role Phone Shahzad Soliz DO Primary Care Provider [phone] Surgical History Surgery Date Site/Laterality Comments HYSTERECTOMY PROCEDURE: HISTORICAL HYSTERECTOMY Medical History Medical History Date Comments Hypertension 10/01/2013 DX:Hypertension Allergic rhinitis 10/01/2013 DX:Allergic rh initis Obesity 10/01/2013 DX:Obesity Gastric reflux syndrome 10/01/2013 DX:Gastr ic reflux syndrome Seizure disorder ([facility] V2 4, CMS/HCC V28) 10/01/2013 DX:Seizure disorder ([facility]) Developmental delay disorder 10/01/2013 DX: Developmental delay disorder Morbid obesity (CMS/HCC V24, CMS/[facility] V28) 10/01/2013 DX:Morbid obesity ([facility]) Vitamin D deficiency 03/23/2014 DX:Vitamin D deficiency History of GI bleed 03/23/2014 DX:History o f GI bleed; COMMENT: 08/14/13 hospitalized upper GI (non bleeding ulcer) ? prednisone Family History Medical History Relation Name Comments Diabetes Mother Relation Name Status Comments Father Maternal Grandfather Maternal Grandmother Mother Paternal Grandfather Paternal Grandmother Sister Alive Social History Tobacco Use Types Packs/Day Years Used Date Smoking Tobacco: Never Smokeless Tobacco: Never Alcohol Use Standard Drinks/Week Comments No 0 (1 standard drink = 0.6 oz pur e alcohol) Comments Unknown Sex and Gender Information Value Date Recorded Sex Assigned at Not on file Legal Sex Female 6:42 AM EST Gender Identity Not on file Sexual Orientation Not on file Obstetrics History Last Filed Vital Signs Vital Sign Reading Time Taken Comments Blood Pressure 126/84 11/09/2021 9:00 AM EDT Sit ting L Arm Pulse 71 11/09/2021 9:00 AM EDT Temperature - - Respiratory Rate - - Oxygen Saturation - - Inhaled Oxygen Concentration - - Weight 126 kg (277 lb) 11/09/2021 8:35 AM EDT Height 167.6 cm (5' 6 ) 11/09/2021 8:35 AM EDT Body Mass Index 44.71 11/09/2021 8:35 AM EDT Plan of Treatment Health Maintenance Due Date Last Done Comments Breast Cancer Screening 1965 Hepatitis B Vaccines (1 of 3 - 19+ 3-dose series) 1984 Cervical Cancer Screening: P ap Smear 1986 Pneumococcal Vaccine: 50+ Years (2 of 2 - PCV) 09/12/2015 03/08/2012 Zoster Vaccines (1 of 2) 09/12/2015 Colorectal Cancer Screening: Colonoscopy 05/06/2022 Depression Screening 05/06/2022 HIV Screening 05/06/2022 Hepatitis C Screening 05/06/2022 Medicare Annual Wellness Visit 05/06/2022 Social Influencers of Health Screening 05/06/2022 COVID-19 Vaccine (1 - 2023-2 5 season) 2024 DTaP,Tdap,and Td Vaccines (2 - Td or Tdap) 06/01/2024 06/01/2014 Influenza Vaccine (Season Ended) 2025 03/04/2014, 03/08/2012 Hypertension/CHF/CAD Annual BMP Blood Test 06/08/2025 06/08/2024 Cholesterol Screening (Lipid Panel) 06/08/2029 06/08/2024 Pneumococcal Vaccine: Pediatrics (0 to 5 Years) and At-Risk Patients (6 to 64 Years) Aged Out 03/08/2012 No longer eligible b ased on patient's age to complete this topic HIB Vaccines Aged Out No longer eligi ble based on patient's age to complete this topic HPV Vaccines Aged Out No longer eligi ble based on patient's age to complete this topic Hepatitis A Vaccines Aged Out No long er eligible based on patient's age to complete this topic IPV Vaccines Aged Out No longer eligi ble based on patient's age to complete this topic MMR Vaccines Aged Out No longer eligi ble based on patient's age to complete this topic Meningococcal ACWY Vaccine Aged Out N o longer eligible based on patient's age to complete this topic Meningococcal B Vaccine Aged Out No l onger eligible based on patient's age to complete this topic RSV Immunization Patients Under 20 months Aged Out No longer eligible b ased on patient's age to complete this topic Varicella Vaccines Aged Out No longer eligible based on patient's age to complete this topic Procedures Procedure Name Priority Date/Time Associated Diagnosis Comments INTERFERON GAMMA INTERPRETATION Routine 08/13/2024 1:43 PM EDT Screening due INTERFERON GAMMA ANTIGEN 2 Routine 08/13/2024 1:43 PM EDT Screening due INTERFERON GAMMA ANTIGEN 1 Routine 08/13/2024 1:43 PM EDT Screening due INTERFERON GAMMA MITOGEN Routine 08/13/2024 1:43 PM EDT Screening due INTERFERON GAMMA NIL Routine 08/13/2024 1:43 PM EDT Screening due INTERFERON GAMMA FOR TB, QUALITATIVE Routine 08/13/2024 1:43 PM EDT Screening due COMPREHENSIVE METABOLIC PANEL Routine 06/08/2024 1:17 PM EST Hyperlipemia Subchronic schizophrenia (CMS/HCC V24, CMS/HCC V28) LIPID PANEL WITH REFLEX TO DIRECT LDL Routine 06/08/2024 1:17 PM EST Hyperlipemia Subchronic schizophrenia (CMS/HCC V24, CMS/HCC V28) from Last 3 Months or Most Recently Relevant to Health Maintenance Results * Interferon gamma interpretation (08/13/2024 1:43 PM EDT) Quantiferon Plus Interpretation Negative Negative LAB CHEMISTRY METHOD 08/16/2024 2:18 PM EDT [facility] Blood Venous blood specimen / Unknown Venipuncture / Unknown 08/13/2024 1:43 PM EDT 08/13/2024 1:43 PM EDT us Agatha Uribe SENIOR PROGRAM MANAGER LAB BLOOD ORDERABLES Fi nal Result [facility] [address] [place] [address], [place] [phone] * Interferon gamma antigen 2 (08/13/2024 1:43 PM EDT) Blood Venous blood specimen / Unknown Venipuncture / Unknown 08/13/2024 1:43 PM EDT 08/13/2024 1:43 PM EDT us Agatha Uribe SENIOR PROGRAM MANAGER LAB BLOOD ORDERABLES Fi nal Result [facility] [address] [place] [address], [place] [phone] * Inteferon gamma antigen 1 (08/13/2024 1:43 PM EDT) Blood Venous blood specimen / Unknown Venipuncture / Unknown 08/13/2024 1:43 PM EDT 08/13/2024 1:43 PM EDT Agatha Uribe SENIOR PROGRAM MANAGER LAB BLOOD ORDERABLES Fi nal Result Performing Organization Address City/[facility]/ZIP Co de Phone Number [facility] [address] [place] [address], [place] [phone] * Interferon gamma mitogen (08/13/2024 1:43 PM EDT) Blood Venous blood specimen / Unknown Venipuncture / Unknown 08/13/2024 1:43 PM EDT 08/13/2024 1:43 PM EDT us Agatha Uribe SENIOR PROGRAM MANAGER LAB BLOOD ORDERABLES Fi nal Result [facility] [address] [place] [address], [place] [phone] * Interferon gamma NIL (08/13/2024 1:43 PM EDT) Blood Venous blood specimen / Unknown Venipuncture / Unknown 08/13/2024 1:43 PM EDT 08/13/2024 1:43 PM EDT Agatha Uribe SENIOR PROGRAM MANAGER LAB BLOOD ORDERABLES Fi nal Result [facility] [address] [place] [address], [place] [phone] * Lipid panel with reflex to direct LDL (06/08/2024 1:17 PM EST) Cholesterol 178 0 - 200 mg/dL LAB CHEMISTRY METHOD 06/08/2024 4:36 PM EST [facility] Triglycerides 141 0 - 150 mg/dL LAB CHEMISTRY METHOD 06/08/2024 4:36 PM EST [facility] HDL 66 >=40 mg/dL LAB CHEMISTRY METHOD 06/08/2024 4:36 PM EST [facility] LDL Calculated 84 0 - 100 mg/dL LAB CHEMISTRY METHOD 06/08/2024 4:36 PM EST [facility] VLDL Cholesterol Mg 28.2 mg/dL LAB CHEMISTRY METHOD 06/08/2024 4:36 PM EST [facility] Non HDL Chol. (LDL+VLDL) 112 <145 mg/dL LAB CHEMISTRY METHOD 06/08/2024 4:36 PM EST [facility] Chol/HDL Ratio 2.7 0.0 - 4.4 LAB CHEMISTRY METHOD 06/08/2024 4:36 PM EST [facility] Blood Venous blood specimen / Unknown Venipuncture / Unknown 06/08/2024 1:17 PM EST 06/08/2024 1:17 PM EST Agatha Uribe SENIOR PROGRAM MANAGER LAB BLOOD ORDERABLES Fi nal Result Performing Organization Address [facility]/ZIP Co de Phone Number [facility] [address] [place] [address], [place] [phone] * (ABNORMAL) Comprehensive metabolic panel (06/08/2024 1:17 PM EST) Sodium 138 133 - 145 mmol/L LAB CHEMISTRY METHOD 06/08/2024 4:36 PM [facility] Potassium 4.3 3.5 - 5.5 mmol/L LAB CHEMISTRY METHOD 06/08/2024 4:36 PM [facility] Chloride 110 96 - 110 mmol/L LAB CHEMISTRY METHOD 06/08/2024 4:36 PM [facility] CO2 21 21 - 32 mmol/L LAB CHEMISTRY METHOD 06/08/2024 4:36 PM [facility] Anion Gap 7 3 - 11 LAB CHEMISTRY METHOD 06/08/2024 4:36 PM [facility] Glucose 84 70 - 100 mg/dL LAB CHEMISTRY METHOD 06/08/2024 4:36 PM [facility] BUN 19 5 - 25 mg/dL LAB CHEMISTRY METHOD 06/08/2024 4:36 PM [facility] Creatinine 0.78 0.50 - 1.10 mg/dL LAB CHEMISTRY METHOD 06/08/2024 4:36 PM [facility] eGFR 88 >=60 mL/min/1. 73m2 LAB CHEMISTRY METHOD 06/08/2024 4:36 PM [facility] Comment:Calculation based on the??Chronic Kidney Disease Epidemiology Collaboration (CKD-EPI) equation refit??without adjustment for race. BUN/Creatinine Ratio 24.4 LAB CHEMISTRY METHOD 06/08/2024 4:36 PM [facility] Calcium 8.3(L) 8.5 - 10.5 mg/dL LAB CHEMISTRY METHOD 06/08/2024 4:36 PM [facility] AST (SGOT) 14 10 - 42 unit/L LAB CHEMISTRY METHOD 06/08/2024 4:36 PM [facility] ALT (SGPT) 13 10 - 60 unit/L LAB CHEMISTRY METHOD 06/08/2024 4:36 PM [facility] Alkaline Phosphatase 106 42 - 121 unit/L LAB CHEMISTRY METHOD 06/08/2024 4:36 PM EST [facility] Total Protein 6.4 6.0 - 8.0 g/dL LAB CHEMISTRY METHOD 06/08/2024 4:36 PM EST [facility] Albumin 3.2 3.2 - 5.0 g/dL LAB CHEMISTRY METHOD 06/08/2024 4:36 PM [facility] Total Bilirubin 0.2 0.0 - 1.4 mg/dL LAB CHEMISTRY METHOD 06/08/2024 4:36 PM EST [facility] Blood Venous blood specimen / Unknown Venipuncture / Unknown 06/08/2024 1:17 PM EST 06/08/2024 1:17 PM EST Agatha Uribe SENIOR PROGRAM MANAGER LAB BLOOD ORDERABLES Fi nal Result [facility] [address] [place] [address], [place] [phone] from Last 3 Months or Most Recently Relevant to Health Maintenance Insurance MEDICARE MEDICAID - [place] Advance Directives Documents on File Type Date Recorded Patient Air Traffic Control Manager Expl anation Health Care Decision (hx) 08/27/2013 AD ELLIOTT DIRECTIVE Health Care Decision (hx) 08/27/2013 AD ELLIOTT DIRECTIVE Health Care Decision (hx) 08/27/2013 AD ELLIOTT DIRECTIVE Health Care Decision (hx) 08/27/2013 AD ELLIOTT DIRECTIVE Health Care Decision (hx) 08/27/2013 AD ELLIOTT DIRECTIVE Health Care Decision (hx) 08/27/2013 AD ELLIOTT DIRECTIVE Health Care Decision (hx) 08/27/2013 AD ELLIOTT DIRECTIVE Health Care Decision (hx) 08/27/2013 AD ELLIOTT DIRECTIVE Health Care Decision (hx) 08/07/2013 AD ELLIOTT DIRECTIVE Health Care Decision (hx) 08/07/2013 AD ELLIOTT DIRECTIVE Health Care Decision (hx) 08/07/2013 AD ELLIOTT DIRECTIVE Health Care Decision (hx) 08/07/2013 AD ELLIOTT DIRECTIVE Health Care Decision (hx) 08/07/2013 AD ELLIOTT DIRECTIVE Health Care Decision (hx) 08/07/2013 AD ELLIOTT DIRECTIVE Health Care Decision (hx) 08/07/2013 AD ELLIOTT DIRECTIVE Health Care Decision (hx) 08/07/2013 AD ELLIOTT DIRECTIVE Health Care Decision (hx) 03/20/2013 AD ELLIOTT DIRECTIVE Health Care Decision (hx) 03/20/2013 AD ELLIOTT DIRECTIVE Health Care Decision (hx) 03/20/2013 AD ELLIOTT DIRECTIVE Health Care Decision (hx) 03/20/2013 AD ELLIOTT DIRECTIVE Health Care Decision (hx) 03/20/2013 AD ELLIOTT DIRECTIVE Health Care Decision (hx) 03/20/2013 AD ELLIOTT DIRECTIVE Health Care Decision (hx) 03/20/2013 AD ELLIOTT DIRECTIVE Health Care Decision (hx) 03/20/2013 AD ELLIOTT DIRECTIVE Health Care Decision (hx) 03/06/2013 AD ELLIOTT DIRECTIVE Health Care Decision (hx) 03/06/2013 AD ELLIOTT DIRECTIVE Health Care Decision (hx) 03/06/2013 AD ELLIOTT DIRECTIVE Health Care Decision (hx) 03/06/2013 AD ELLIOTT DIRECTIVE Health Care Decision (hx) 03/06/2013 AD ELLIOTT DIRECTIVE Health Care Decision (hx) 03/06/2013 AD ELLIOTT DIRECTIVE Health Care Decision (hx) 03/06/2013 AD ELLIOTT DIRECTIVE Health Care Decision (hx) 03/06/2013 AD ELLIOTT DIRECTIVE Care Teams Audio Visual Collections Coordinator Relationship Specialty Start Date End Date Shahzad Soliz DO [address] [place] [phone] PCP - General Internal Medicine 11/11/20
== END 2024-09-14 13:26 | disposition home or self-care (01) ==
LOC: HO.LAB 13:25
PROVIDERS: PCP Internal Medicine; Visit Provider Psychiatry & Neurology Neurology
DX: R56.9 Unspecified convulsions (principal)
CPT/HCPCS: 36415; 80164; 80185

== ENCOUNTER 2025-01-19 10:28 | Outpatient (AMB) | payer MEDICARE, MEDICAID, SELFPAY ==
--- NOTE | 2025-01-19 10:59 | A.OFFVIS_ITS ---
Intake Visit Reasons: 4 month Allergies No Known Allergies Allergy (Verified 02/02/21 12:59) Medication List - Last Reconciled 01/19/25 by Brigitte Nunez MD acetaminophen 975 mg (3 x 325 mg) PO BID albuterol sulfate 90 mcg/actuation (Ventolin HFA) 2 puffs inhalation Q4H PRN benztropine 1 mg PO BID buspirone 15 mg (3 x 5 mg) PO BID cholecalciferol (vitamin D3) 25 mcg PO DAILY divalproex ER (Depakote ER) 500 mg PO QID ibuprofen 600 mg PO Q8H PRN lidocaine 4% (Lidocaine Pain Relief) 1 patch See Protocol transdermal DAILY loratadine 10 mg PO DAILY nitrofurantoin macrocrystal 50 mg PO QID olanzapine 5 mg PO BID oxcarbazepine 300 mg PO BEDTIME oxcarbazepine 150 mg PO DAILY pantoprazole DR 40 mg PO DAILY phenytoin sodium extended (Dilantin Extended) 100 mg PO TID prednisone 40 mg (2 x 20 mg) PO DAILY risperidone 3 mg PO BID topiramate 100 mg PO TID 30 days HPI Comments Details: No Sz reported since last visit. Last few Sz on 11/05/23 where she gets confused and starts to take off her clothes and she has no recall of it. No eye witness report . No more falls. Using a walker. She has mild encephalopathy with mild mental retardation, based on the neuropsych evaluation in 2011 who has been noted to have a cognitive decline in the last 18 months with escalation in her behavior including acts using people of stealing from her, repeating herself more often and trouble using her form that she could manage previously. 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 mcclure and was on Dilantin and Mebaral. She is currently on Dilantin 200 mg twice a day, topiramate 100 mg 3 times a day, and Depakote 500 mg 3 times a day. She also takes a total of 450 mg of Trileptal, although that may have been prescribed by her psychiatrist for mood disorder. She lives in a chcf or to other women and is accompanied today by her sister, and one of her caregivers. [facility] Medical History (Updated 01/19/25 @ 11:21 by Brigitte Nunez MD) Seizure disorder Schizophrenia Intellectual disability Bipolar disorder GERD (gastroesophageal reflux disease) PTSD (post-traumatic stress disorder) Multiple sclerosis Asthma Surgical History History of bilateral breast reduction surgery Social History Household Members: Other Household Members Other:: pt. resides in chcf Housing: House Do you presently have visiting nurse or other home services: Yes Comment: patient ambulates using walker [employer] Smoke Exposure: No service: No Sexual orientation: Don't Know Review of Systems Const Details: General/Constitutional:? Change in appetitedenies.? Chillsdenies.? Fatiguedenies.? Feverdenies.? Weight gaindenies.? Weight lossdenies. ???Sleep:? Difficulty getting to sleepdenies.? Difficulty maintaining sleepdenies?.? Urge to move legsdenies.? Teeth grindingdenies.? Shouting or Kicking during sleep denies.? Abnormal behavior during sleepdenies.? Excessive sleepdenies.? Snoring denies.? Daytime sleepinessdenies. ???Respiratory:? Shortness of breathdenies.? Chest paindenies.? Coughdenies. ???Cardiovascular:? Chest pain at restdenies.? Chest pain with exertiondenies.? Claudicationdenies .? Dizzinessdenies.? Fluid accumulation in the legsdenies.? Irregular heartbeat denies.? Palpitationsdenies. ???Gastrointestinal:? Abdominal paindenies.? Constipationdenies.? Diarrheadenies.? Difficulty swallowingdenies.? Heartburndenies.? Nauseadenies.? Rectal bleedingdenies. ???Genitourinary:? Frequent urinationdenies.? Urgencydenies.? Incontinencedenies.? Erectile Dysfunctiondenies. ???Musculoskeletal:? Neck paindenies.? Back paindenies.? Muscle achesdenies.? Painful jointsdenies.? Sciaticadenies.? Weaknessdenies. ???Neurologic:? Difficulty swallowingdenies.? Balance difficultydenies.? Coordinationnormal.? Difficulty speakingdenies.? Dizzinessdenies.? Faintingdenies.? Gait abnormality denies.? Headachedenies.? Loss of strengthdenies.? Loss of use of extremity denies.? Low back paindenies.? Memory lossdenies.? Seizuresdenies.? Ticsdenies.? Tingling/Numbnessdenies.? Transient loss of visiondenies.? Tremordenies. ???Psychiatric:? Anxietydenies.? Auditory/visual hallucinationsdenies.? Delusionsdenies.? Depressed mooddenies.? Stressorsdenies.? Substance abusedenies.? Suicidal thoughtsdenies. Physical Exam Neuro Other: Neurological: Abnormal neurological findings:??Flat affect and bradyphrenia,?.?Mental Status:??MMS 28/30 .?.?Cranial Nerves:??Pupils are equal, round and reactive to light. Fundoscopy shows normal disc bilaterally. External occular muscles are intact. Visual quiñones are full, no ptosis. Face is symmetrical, no facial weakness or droop. Facial sensations are normal. Tongue protrudes in midline. Palate elevates symmetrically. Shoulder shrugging is normal..?Motor Examination:??Normal muscle tone, bulk and strength,?No atrophy or fasciculations,?No drift of the extended upper extremities,?Deep tendon reflexes are 2+?,?Plantars are flexor?.?Straight Leg Raising:??90 degrees.?Sensory Exam:??Normal light touch, temperature, pinprick, vibration and joint-position sensations?,?Rhomberg sign is absent.?Coordination:??no ataxia,?no titubation,?bwendu-ct-[id number], midb-ecsk-blwm test and rapid alternating movements were normal.?Gait Exam:??Within normal limits.?Cerebellar Signs:??Tkagvg-an-bawt and iuwr-oh-kwgl is normal,?no dysdiadochokinesia?.?Extrapyramidal System:??No tremor, rigidity with normal facial expressions,?No bradykinesia, no bradyphrenia. Normal arm swing and posture. No propulsion or retropulsion.?Speech:??Normal,?no dysphasia or dysarthria..? Mini Mental Status Exam: Level of Consciousness:??Alert.?Orientation:??Knows correct year, month, date, day and season,?Knows correct city, county and state. Knows correct location and floor.?Registration:??Able to register 3 objects.?Attention:??Serial 7's performed accurately.?Recall:??Able to recall 3 out of 3 objects.?Language:??Normal spontaneous speech, fluency, repetition,naming, comprehension, reading and writing.?Total Score:??28/30.? Results Reviewed Results Reviewed: 09/22/24 Waking EEG was normal. Assessment & Plan Assessment & Plan (1) Seizure disorder: Comment: She has epilepsy since childhood. The seizures appear to be controlled by her history. Valproic acid level is adequate. 11/05/23 EEG- WNL 09/22/24 EEG WNL. 11/20/23 Dilantin and Valproate mid therapeutic range 01/02/24 48 hr EEG minimally abnormal with a few left temporal sharp waves suggesting a focu sof minimal cerebral irritability. Code(s): G40.909 - Epilepsy, unspecified, not intractable, without status epilepticus Category: Medical (2) Intellectual disability: Comment: Pt works with [employer] and resides in a [employer] chcf Code(s): F79 - Unspecified intellectual disabilities Category: Medical (3) Schizophrenia: Code(s): F20.9 - Schizophrenia, unspecified Category: Medical Plan Continue current meds. Script given to administer Depakote Er 500mg at day care at [facility] Medications: Changed From divalproex ER (Depakote ER) 500 mg PO TID 90 tabs 0RF To divalproex ER (Depakote ER) 500 mg PO QID From phenytoin sodium extended (Dilantin Extended) 200 mg (2 x 100 mg) PO BID 120 caps 0RF To phenytoin sodium extended (Dilantin Extended) 100 mg PO TID Coding Level of Care Code Est Pt Level 4 (29257) Diagnoses Seizure disorder G40.909 Intellectual disability F79 Schizophrenia F20.9
--- OUTSIDE RECORDS SUMMARY | 2025-01-19 11:49 | XMS_ITS | Clinical Summary ---
Author Organization [address] Address [address] [place] [address] Phone Care Team Providers Care Fur Comber Name Role Phone Shahzad Soliz DO Primary Care Provider [phone] Surgical History Surgery Date Site/Laterality Comments HYSTERECTOMY PROCEDURE: HISTORICAL HYSTERECTOMY Medical History Medical History Date Comments Hypertension 10/01/2013 DX:Hypertension Allergic rhinitis 10/01/2013 DX:Allergic rh initis Obesity 10/01/2013 DX:Obesity Gastric reflux syndrome 10/01/2013 DX:Gastr ic reflux syndrome Seizure disorder ([facility] V2 4, CMS/HCC V28) 10/01/2013 DX:Seizure disorder ([facility]) Developmental delay disorder 10/01/2013 DX: Developmental delay disorder Morbid obesity (CMS/HCC V24, CMS/[facility] V28) 10/01/2013 DX:Morbid obesity ([facility]) Vitamin D deficiency 03/23/2014 DX:Vitamin D [...] 2) 09/12/2015 Colorectal Cancer Screening: Colonoscopy 05/06/2022 HIV Screening 05/06/2022 Hepatitis C Screening 05/06/2022 Medicare Annual Wellness Visit 05/06/2022 Social Influencers of Health Screening 05/06/2022 COVID-19 Vaccine (1 - 2023-2 5 season) 2024 DTaP,Tdap,and Td Vaccines (2 - Td or Tdap) 06/01/2024 06/01/2014 Depression Screening 06/03/2024 Influenza Vaccine (#1) 2025 4, 03/08/2012 Hypertension/CHF/CAD Annual BMP Blood Test 12/08/2025 12/08/2024, 06/08/2024 Cholesterol Screening (Lipid Panel) 12/08/2029 12/08/2024, 06/08/2024 RSV Immunization Adult Patients (1 - 1-dose 75+ series) 2040 HIB Vaccines Aged Out No longer eligi [...] Procedure Name Priority Date/Time Associated Diagnosis Comments CBC WITH AUTO DIFFERENTIAL Routine 12/08/2024 1:12 PM EDT Generalized-onset seizures (CMS/HCC V24, CMS/HCC V28) Subchronic schizophrenia (CMS/HCC V24, CMS/HCC V28) Essential hypertension, malignant Impaired fasting glucose HEMOGLOBIN A1C Routine 12/08/2024 1:12 PM EDT Generalized-onset seizures (CMS/HCC V24, CMS/HCC V28) Subchronic schizophrenia (CMS/HCC V24, CMS/HCC V28) Essential hypertension, malignant Impaired fasting glucose COMPREHENSIVE METABOLIC PANEL Routine 12/08/2024 1:12 PM EDT Generalized-onset seizures (CMS/HCC V24, CMS/HCC V28) Subchronic schizophrenia (CMS/HCC V24, CMS/HCC V28) Essential hypertension, malignant Impaired fasting glucose CBC AND DIFFERENTIAL Routine 12/08/2024 1:12 PM EDT Generalized-onset seizures (CMS/HCC V24, CMS/HCC V28) Subchronic schizophrenia (CMS/HCC V24, CMS/HCC V28) Essential hypertension, malignant Impaired fasting glucose THYROID STIMULATING HORMONE Routine 12/08/2024 1:12 PM EDT Generalized-onset seizures (CMS/HCC V24, CMS/HCC V28) Subchronic schizophrenia (CMS/HCC V24, CMS/HCC V28) Essential hypertension, malignant Impaired fasting glucose CREATINE KINASE Routine 12/08/2024 1:12 PM EDT Generalized-onset seizures (CMS/HCC V24, CMS/HCC V28) Subchronic schizophrenia (CMS/HCC V24, CMS/HCC V28) Essential hypertension, malignant Impaired fasting glucose LIPID PANEL WITH REFLEX TO DIRECT LDL Routine 12/08/2024 1:12 PM EDT Generalized-onset seizures ([facility]/HCC V24, CMS/HCC V28) Subchronic schizophrenia (CMS/HCC V24, [facility] V28) Essential hypertension, malignant Impaired fasting glucose from Last 3 Months Results * Lipid panel with reflex to direct LDL (12/08/2024 1:12 PM EDT) Cholesterol 177 0 - 200 mg/dL LAB CHEMISTRY METHOD 12/08/2024 3:24 PM EDT [facility] Triglycerides 143 0 - 150 mg/dL LAB CHEMISTRY METHOD 12/08/2024 3:24 PM EDT [facility] HDL 73 >=40 mg/dL LAB CHEMISTRY METHOD 12/08/2024 3:24 PM EDT [facility] LDL Calculated 75 0 - 100 mg/dL LAB CHEMISTRY METHOD 12/08/2024 3:24 PM EDT [facility] VLDL Cholesterol Mg 28.6 mg/dL LAB CHEMISTRY METHOD 12/08/2024 3:24 PM EDT [facility] Non HDL Chol. (LDL+VLDL) 104 <145 mg/dL LAB CHEMISTRY METHOD 12/08/2024 3:24 PM EDT [facility] Chol/HDL Ratio 2.4 0.0 - 4.4 LAB CHEMISTRY METHOD 12/08/2024 3:24 PM EDT [facility] Blood Venous blood specimen / Unknown Venipuncture / Unknown 12/08/2024 1:12 PM EDT 12/08/2024 1:12 PM EDT us Agatha Uribe NP LAB BLOOD ORDERABLES Fi nal Result [facility] [address] [place] [address], [place] [phone] * (ABNORMAL) CBC auto differential (12/08/2024 1:12 PM EDT) [facility] WBC 7.9 4.8 - 10.8 K/mcL LAB HEMETOLOGY METHOD 12/08/2024 2:58 PM EDT [facility] RBC 4.20 3.80 - 4.80 M/mcL LAB HEMETOLOGY METHOD 12/08/2024 2:58 PM EDT [facility] Hemoglobin 13.4 11.5 - 16.0 g/dL LAB HEMETOLOGY METHOD 12/08/2024 2:58 PM EDT [facility] Hematocrit 40.4 35.0 - 47.0 % LAB HEMETOLOGY METHOD 12/08/2024 2:58 PM EDT [facility] MCV 97.1 79.0 - 98.0 FL LAB HEMETOLOGY METHOD 12/08/2024 2:58 [facility] MCH 32.2(H) 27.0 - 32.0 pcg LAB HEMETOLOGY METHOD 12/08/2024 2:58 PM EDT [facility] MCHC 33.2 32.0 - 37.0 g/dL LAB HEMETOLOGY METHOD 12/08/2024 2:58 PM EDT [facility] RDW 13.4 11.0 - 15.0 % LAB HEMETOLOGY METHOD 12/08/2024 2:58 PM EDT [facility] Platelets 237 130 - 400 K/mcL LAB HEMETOLOGY METHOD 12/08/2024 2:58 PM EDT [facility] MPV 10.1 7.0 - 11.0 FL LAB HEMETOLOGY METHOD 12/08/2024 2:58 PM EDT [facility] NRBC 0.0 <1.0 % LAB HEMETOLOGY METHOD 12/08/2024 2:58 PM EDT [facility] NRBC Absolute 0.00 <0.10 K/mcL LAB HEMETOLOGY METHOD 12/08/2024 2:58 PM EDT [facility] Neutrophils Relative 61.2 % LAB HEMETOLOGY METHOD 12/08/2024 2:58 PM EDT [facility] Lymphocytes Relative 29.8 % LAB HEMETOLOGY METHOD 12/08/2024 2:58 PM [facility] Monocytes Relative 7.7 % LAB HEMETOLOGY METHOD 12/08/2024 2:58 PM EDT [facility] Eosinophils Relative 0.6 % LAB HEMETOLOGY METHOD 12/08/2024 2:58 PM [facility] Basophils Relative 0.4 % LAB HEMETOLOGY METHOD 12/08/2024 2:58 PM [facility] Immature Granulocytes Relative 0.3 % LAB HEMETOLOGY METHOD 12/08/2024 2:58 PM [facility] Neutrophils Absolute 4.86 1.50 - 7.00 K/mcL LAB HEMETOLOGY METHOD 12/08/2024 2:58 PM [facility] Lymphocytes Absolute 2.36 1.00 - 5.00 K/mcL LAB HEMETOLOGY METHOD 12/08/2024 2:58 PM [facility] Monocytes Absolute 0.61 0.20 - 1.00 K/mcL LAB HEMETOLOGY METHOD 12/08/2024 2:58 PM [facility] Eosinophils Absolute 0.05 0.00 - 0.50 K/mcL LAB HEMETOLOGY METHOD 12/08/2024 2:58 PM [facility] Basophils Absolute 0.03 0.00 - 0.20 K/mcL LAB HEMETOLOGY METHOD 12/08/2024 2:58 PM [facility] Immature Granulocytes Absolute 0.02 0.00 - 0.03 K/mcL LAB HEMETOLOGY METHOD 12/08/2024 2:58 PM [facility] Blood Venous blood specimen / Unknown Venipuncture / Unknown 12/08/2024 1:12 PM EDT 12/08/2024 1:12 PM EDT us Agatha Uribe NP LAB BLOOD ORDERABLES Fi nal Result [facility] [address] [place] [address], [place] [phone] * Thyroid stimulating hormone (12/08/2024 1:12 PM EDT) Pathologist [facility] TSH 0.84 0.40 - 4.00 mcIU/mL LAB CHEMISTRY METHOD 12/08/2024 4:39 PM EDT [facility] Blood Venous blood specimen / Unknown Venipuncture / Unknown 12/08/2024 1:12 PM EDT 12/08/2024 1:12 PM EDT us Agatha Uribe NP LAB BLOOD ORDERABLES Fi nal Result Performing Organization Address [facility]/ZIP Co de Phone Number [facility] [address] [place] [address], [place] [phone] * Hemoglobin A1c (12/08/2024 1:12 PM EDT) [facility] Hemoglobin A1C 5.2 <6.5 % LAB CHEMISTRY METHOD 12/08/2024 10:12 PM EDT [facility] Mean Bld Glu Estim. 103 mg/dL LAB CHEMISTRY METHOD 12/08/2024 10:12 PM EDT [facility] Blood Venous blood specimen / Unknown Venipuncture / Unknown 12/08/2024 1:12 PM EDT 12/08/2024 1:12 PM EDT us Agatha Uribe NP LAB BLOOD ORDERABLES Fi nal Result Performing Organization Address City/[facility]/ZIP Co de Phone Number [facility] [address] [place] [address], [place] [phone] * Creatine kinase (12/08/2024 1:12 PM EDT) [facility] Total CK 64 22 - 269 unit/L LAB CHEMISTRY METHOD 12/08/2024 3:24 PM EDT [facility] Blood Venous blood specimen / Unknown Venipuncture / Unknown 12/08/2024 1:12 PM EDT 12/08/2024 1:12 PM EDT Agatha Uribe [employer] LAB BLOOD ORDERABLES Fi nal Result [facility] [address] [place] [address], [place] [phone] * (ABNORMAL) Comprehensive metabolic panel (12/08/2024 1:12 PM EDT) [facility] Sodium 139 133 - 145 mmol/L LAB CHEMISTRY METHOD 12/08/2024 3:31 PM EDT [facility] Potassium 4.2 3.5 - 5.5 mmol/L LAB CHEMISTRY METHOD 12/08/2024 3:31 PM [facility] Chloride 111(H) 96 - 110 mmol/L LAB CHEMISTRY METHOD 12/08/2024 3:31 PM [facility] CO2 22 21 - 32 mmol/L LAB CHEMISTRY METHOD 12/08/2024 3:31 PM T [facility] Anion Gap 6 3 - 11 LAB CHEMISTRY METHOD 12/08/2024 3:31 PM [facility] Glucose 89 70 - 100 mg/dL LAB CHEMISTRY METHOD 12/08/2024 3:31 PM T [facility] BUN 22 5 - 25 mg/dL LAB CHEMISTRY METHOD 12/08/2024 3:31 PM [facility] Creatinine 0.85 0.50 - 1.10 mg/dL LAB CHEMISTRY METHOD 12/08/2024 3:31 PM EDT [facility] eGFR 79 >=60 mL/min/1. 73m2 LAB CHEMISTRY METHOD 12/08/2024 3:31 PM T [facility] Comment:Calculation based on the Chronic Kidney Disease Epidemiology Collaboration (CKD-EPI) equation refit without adjustment for race. BUN/Creatinine Ratio 25.9 LAB CHEMISTRY METHOD 12/08/2024 3:31 PM EDT [facility] Calcium 9.1 8.5 - 10.5 mg/dL LAB CHEMISTRY METHOD 12/08/2024 3:31 PM [facility] AST (SGOT) 12 10 - 42 unit/L LAB CHEMISTRY METHOD 12/08/2024 3:31 PM [facility] ALT (SGPT) 15 10 - 60 unit/L LAB CHEMISTRY METHOD 12/08/2024 3:31 PM T [facility] Alkaline Phosphatase 107 42 - 121 unit/L LAB CHEMISTRY METHOD 12/08/2024 3:31 PM [facility] Total Protein 6.9 6.0 - 8.0 g/dL LAB CHEMISTRY METHOD 12/08/2024 3:31 PM [facility] Albumin 3.2 3.2 - 5.0 g/dL LAB CHEMISTRY METHOD 12/08/2024 3:31 PM [facility] Total Bilirubin 0.2 0.0 - 1.4 mg/dL LAB CHEMISTRY METHOD 12/08/2024 3:31 PM T [facility] Blood Venous blood specimen / Unknown Venipuncture / Unknown 12/08/2024 1:12 PM EDT 12/08/2024 1:12 PM EDT us Agatha Uribe NP LAB BLOOD ORDERABLES Fi nal Result [facility] [address] [place] [address], [place] [phone] from Last 3 Months Insurance MEDICARE MEDICAID - [place] Advance Directives Documents on File Type Date Recorded Patient Traffic Reporter Expl anation Health Care Decision (hx) 08/27/2013 [...] (hx) 03/06/2013 AD ELLIOTT DIRECTIVE Care Teams Fur Comber Relationship Specialty Start Date End Date Shahzad Soliz DO [address] [place] [phone] PCP - General Internal Medicine 11/11/20
== END 2025-01-19 11:22 | disposition home or self-care (01) ==
LOC: HO.HSM 10:28
PROVIDERS: PCP Internal Medicine; Referring Provider Psychiatry & Neurology Psychiatry; Visit Provider Psychiatry & Neurology Neurology
DX: G40.909 Epilepsy, unspecified, not intractable, without status epilepticus (principal); F79 Unspecified intellectual disabilities; F20.9 Schizophrenia, unspecified
CPT/HCPCS: 99214

== ENCOUNTER → 2025-01-19 10:28 | Outpatient (BNVA) | payer MEDICARE, MEDICAID, SELFPAY | PROVIDERS: PCP Internal Medicine; Referring Provider Psychiatry & Neurology Psychiatry; Visit Provider Psychiatry & Neurology Neurology | DX: G40.909 Epilepsy, unspecified, not intractable, without status epilepticus (principal); F79 Unspecified intellectual disabilities; F20.9 Schizophrenia, unspecified | CPT/HCPCS: 99212 ==

== ENCOUNTER 2025-06-01 16:00 | Outpatient (REF) | payer MEDICARE, MEDICAID, SELFPAY ==
--- OUTSIDE RECORDS SUMMARY | 2025-06-01 19:04 | XMS_ITS | Clinical Summary ---
Author Organization [address] Address [address] [place] [address] Phone Care Team Providers Care Electronics Supervisor Name Role Phone Shahzad Soliz DO Primary Care Provider [phone] Surgical History Surgery Date Site/Laterality Comments HYSTERECTOMY PROCEDURE: HISTORICAL HYSTERECTOMY Medical History Medical History Date Comments Hypertension 10/01/2013 DX:Hypertension Allergic rhinitis 10/01/2013 DX:Allergic rh initis Obesity 10/01/2013 DX:Obesity Gastric reflux syndrome 10/01/2013 DX:Gastr ic reflux syndrome Seizure disorder ([facility] V2 4, CMS/HCC V28) 10/01/2013 DX:Seizure disorder ([facility]) Developmental delay disorder 10/01/2013 DX: Developmental delay disorder Morbid obesity (CMS/HCC V24, CMS/[facility] V28) 10/01/2013 DX:Morbid obesity ([facility]) Vitamin D deficiency 03/23/2014 DX:Vitamin D deficiency [...] on file Sexual Orientation Not on file Last Filed Vital Signs Vital Sign Reading [...] Last Done Comments Breast Cancer Screening 1965 Colorectal Cancer Screening: Colonoscopy 1965 Hepatitis B Vaccines (1 of 3 - 19+ 3-dose series) 1984 Cervical Cancer Screening: P ap Smear 1986 Pneumococcal Vaccine: 50+ Years (2 of 2 - PCV) 09/12/2015 03/08/2012 Zoster Vaccines (1 of 2) 09/12/2015 HIV Screening 05/06/2022 Hepatitis C Screening 05/06/2022 Medicare Annual Wellness Visit 05/06/2022 Social Influencers of Health Screening 05/06/2022 DTaP,Tdap,and Td Vaccines (2 - Td or Tdap) 06/01/2024 06/01/2014 Depression Screening 06/03/2024 COVID-19 Vaccine ( - 2024-2 6 season) 2025 Influenza Vaccine (#1) 2025 4, 03/08/2012 Hypertension/CHF/CAD [...] Procedure Name Priority Date/Time Associated Diagnosis Comments COMPREHENSIVE METABOLIC PANEL Routine 12/08/2024 1:12 PM EDT Generalized-onset seizures (CMS/HCC V24, CMS/HCC V28) Subchronic schizophrenia (CMS/HCC V24, CMS/HCC V28) Essential hypertension, malignant Impaired fasting glucose LIPID PANEL WITH REFLEX TO DIRECT LDL Routine 12/08/2024 1:12 PM EDT Generalized-onset seizures (CMS/HCC V24, CMS/HCC V28) Subchronic schizophrenia (CMS/HCC V24, CMS/HCC V28) Essential hypertension, malignant Impaired fasting glucose from Last 3 Months or Most Recently Relevant to Health Maintenance Results * Lipid panel with reflex to direct LDL (12/08/2024 1:12 PM EDT) Cholesterol 177 0 - 200 mg/dL LAB CHEMISTRY METHOD 12/08/2024 3:24 PM EDT [facility] Triglycerides 143 0 - 150 mg/dL LAB CHEMISTRY METHOD 12/08/2024 3:24 PM EDT [facility] HDL 73 >=40 mg/dL LAB CHEMISTRY METHOD 12/08/2024 3:24 PM EDT [facility] LDL Calculated 75 0 - 100 mg/dL LAB CHEMISTRY METHOD 12/08/2024 3:24 PM EDT [facility] VLDL Cholesterol Mg 28.6 mg/dL LAB CHEMISTRY METHOD 12/08/2024 3:24 PM EDT [facility] Non HDL Chol. (LDL+VLDL) 104 <145 mg/dL LAB CHEMISTRY METHOD 12/08/2024 3:24 PM EDT [facility] Chol/HDL Ratio 2.4 0.0 - 4.4 LAB CHEMISTRY METHOD 12/08/2024 3:24 PM T [facility] Blood Venous blood specimen / Unknown Venipuncture / Unknown 12/08/2024 1:12 PM EDT 12/08/2024 1:12 PM EDT us Agatha Uribe CONTRACT RUNNER LAB BLOOD ORDERABLES Fi nal Result [facility] [address] [place] [address], [place] [phone] * (ABNORMAL) Comprehensive metabolic panel (12/08/2024 1:12 PM EDT) Sodium 139 133 - 145 mmol/L LAB CHEMISTRY METHOD 12/08/2024 3:31 PM [facility] Potassium 4.2 3.5 - 5.5 mmol/L LAB CHEMISTRY METHOD 12/08/2024 3:31 PM [facility] Chloride 111(H) 96 - 110 mmol/L LAB CHEMISTRY METHOD 12/08/2024 3:31 PM [facility] CO2 22 21 - 32 mmol/L LAB CHEMISTRY METHOD 12/08/2024 3:31 PM [facility] Anion Gap 6 3 - 11 LAB CHEMISTRY METHOD 12/08/2024 3:31 PM [facility] Glucose 89 70 - 100 mg/dL LAB CHEMISTRY METHOD 12/08/2024 3:31 PM T [facility] BUN 22 5 - 25 mg/dL LAB CHEMISTRY METHOD 12/08/2024 3:31 PM [facility] Creatinine 0.85 0.50 - 1.10 mg/dL LAB CHEMISTRY METHOD 12/08/2024 3:31 PM [facility] eGFR 79 >=60 mL/min/1. 73m2 LAB CHEMISTRY METHOD 12/08/2024 3:31 PM [facility] Comment:Calculation based on the Chronic Kidney Disease Epidemiology Collaboration (CKD-EPI) equation refit without adjustment for race. BUN/Creatinine Ratio 25.9 LAB CHEMISTRY METHOD 12/08/2024 3:31 PM EDT [facility] Calcium 9.1 8.5 - 10.5 mg/dL LAB CHEMISTRY METHOD 12/08/2024 3:31 PM [facility] AST (SGOT) 12 10 - 42 unit/L LAB CHEMISTRY METHOD 12/08/2024 3:31 PM [facility] ALT (SGPT) 15 10 - 60 unit/L LAB CHEMISTRY METHOD 12/08/2024 3:31 PM [facility] Alkaline Phosphatase 107 42 - 121 unit/L LAB CHEMISTRY METHOD 12/08/2024 3:31 PM [facility] Total Protein 6.9 6.0 - 8.0 g/dL LAB CHEMISTRY METHOD 12/08/2024 3:31 PM EDT [facility] Albumin 3.2 3.2 - 5.0 g/dL LAB CHEMISTRY METHOD 12/08/2024 3:31 PM [facility] Total Bilirubin 0.2 0.0 - 1.4 mg/dL LAB CHEMISTRY METHOD 12/08/2024 3:31 PM EDT [facility] Blood Venous blood specimen / Unknown Venipuncture / Unknown 12/08/2024 1:12 PM EDT 12/08/2024 1:12 PM EDT us Agatha Uribe CONTRACT RUNNER LAB BLOOD ORDERABLES Fi nal Result [facility] [address] [place] [address], from Last 3 Months or Most Recently Relevant to Health Maintenance Insurance MEDICARE MEDICAID - [place] Advance Directives Documents on File Type Date Recorded Patient Roll Finisher Expl anation Health Care Decision (hx) 08/27/2013 [...] (hx) 03/06/2013 AD ELLIOTT DIRECTIVE Care Teams Electronics Supervisor Relationship Specialty Start Date End Date Shahzad Soliz DO [address] [place] [phone] PCP - General Internal Medicine 11/11/20
== END 2025-06-01 16:01 | disposition home or self-care (01) ==
LOC: HO.HAP 16:00
PROVIDERS: Visit Provider Internal Medicine
DX: H91.93 Unspecified hearing loss, bilateral (principal)
CPT/HCPCS: 92593; 99499